=== PATIENT | male | born 1990 | race African-American/Black ===

== ENCOUNTER 2017-06-13 13:40 | Emergency (ER) | payer SELFPAY ==
[2017-06-13] MEDS ORDERED: FAMOTIDINE 20 MG TABLET PO ONE (14:59)
[2017-06-13] MEDS ORDERED: DIPHENHYDRAMINE HCL 50 MG CAPSULE PO ONE (14:59)
[2017-06-13] MEDS ORDERED: DEXAMETHASONE SOD PHOS INJ 10 MG/1 ML VIAL IM ONE (14:59)
--- NOTE | 2017-06-13 15:04 | ER Document Report ---
HPI - HPI Pain Level: 5 Notes: Patient is a 26-year-old male who presents the ED complaining of left upper molar dental pain 1 month, and a rash that started 4 days ago. Patient states that he started noticing a bad taste in his mouth over the last couple days and believes his tooth may be infected. Patient states that he has not noticed any facial swelling or swelling of the gum in that area. Patient states that he still eating and drinking without any difficulties. Patient states that he developed a rash on his face that then spread down to his extremities over the last 4 days. Patient has been taking Benadryl with minimal relief. The rash does itch, and states that his skin feels rough with little bumps. He denies any known exposure to plants, insect bites, new detergents, new clothes, or any new foods. Denies any drug allergies. Patient's medical history only significant for hypertension which he takes blood pressure pill for daily. Patient does admit to smoking but denies any illicit drug use. He does not have a PCM at this time. Denies any headache, fever, URI, ear pain, sore throat , dysphagia, chest pain, palpitations, syncope, cough, wheeze, shortness of breath, abdominal pain, nausea/vomiting/diarrhea, dysuria, urethral discharge, hematuria, urethral discharge, joint pains, muscle aches. Pt does report a recent URI without sore throat. No recent travel or sick contacts otherwise. - ROS Notes: REVIEW OF SYSTEMS: CONSTITUTIONAL : Denies fever, chills, or sweats. Denies recent illness. EENT: see hpi CARDIOVASCULAR: Denies chest pain. Denies palpitations or racing or irregular heart beat. Denies ankle edema. RESPIRATORY: Denies cough, cold, or chest congestion. Denies shortness of breath, difficulty breathing, or wheezing. GASTROINTESTINAL: Denies abdominal pain or distention. Denies nausea, vomiting , or diarrhea. Denies blood in vomitus, stools, or per rectum. Denies black, tarry stools. Denies constipation. GENITOURINARY: Denies difficulty urinating, painful urination, burning, frequency, blood in urine, or discharge. MUSCULOSKELETAL: Denies back or neck pain or stiffness. Denies joint pain or swelling. SKIN: see hpi NEUROLOGICAL: Denies confusion or altered mental status. Denies passing out or loss of consciousness. Denies dizziness or lightheadedness. Denies headache. Denies weakness or paralysis or loss of use of either side. Denies problems with gait or speech. Denies sensory loss, numbness, or tingling. Denies seizures. PSYCHIATRIC: Denies anxiety or stress. Denies depression, suicidal ideation, or homicidal ideation. ALL OTHER SYSTEMS REVIEWED AND NEGATIVE. Dictation was performed using [employer] voice recognition software - CARDIOVASCULAR Cardiovascular: DENIES: Chest pain - REPRODUCTIVE Reproductive: DENIES: : - DERM Skin Color: Normal Past Medical History - Social History Smoking Status: Current Every Day Smoker Frequency of alcohol use: None Drug Abuse: None Family History: Reviewed & Not Pertinent - Past Medical History Cardiac Medical History: Reports: Hx Hypertension Pulmonary Medical History: Reports: Hx Asthma Endocrine Medical History: Denies: Hx Diabetes Mellitus Type 2 Renal/ Medical History: Denies: Hx Peritoneal Dialysis GI Medical History: Denies: Hx Gastroesophageal Reflux Disease Musculoskeltal Medical History: Reports Hx Musculoskeletal Trauma Traumatic Medical History: Reports: Hx Fractures - Right hand Surgical Hx: Negative - Immunizations Immunizations up to date: Yes Hx Diphtheria, Pertussis, Tetanus Vaccination: Yes Vertical Provider Document - CONSTITUTIONAL Agree With Documented VS: Yes Notes: PHYSICAL EXAMINATION: GENERAL: Well-appearing, well-nourished and in no acute distress. HEAD: Atraumatic, normocephalic. EYES: Pupils equal round and reactive to light, extraocular movements intact, sclera anicteric, conjunctiva are normal. ENT: EAC clear b/l. TM's intact b/l without erythema, fluid, or perforation. Nares patent and without discharge. oropharynx clear without exudates. No tonsilar hypertrophy or erythema. Moist mucous membranes. No sinus tenderness. Uvula midline. No palatine shift. No tongue protrusion. Mouth: + fracture to tooth #15. + tenderness. No obvious abscess or discharge noted. No akanksha's. NECK: Normal range of motion, supple without lymphadenopathy. No rigidity. LUNGS: Breath sounds clear to auscultation bilaterally and equal. No wheezes rales or rhonchi. HEART: Regular rate and rhythm without murmurs, rubs, gallops. ABDOMEN: Soft, nontender, nondistended abdomen. No guarding, no rebound. No masses appreciated. Normal bowel sounds present. No CVA tenderness bilaterally. Musculoskeletal: FROM to passive/active. Strength 5+/5. Extremities: No cyanosis, clubbing, or edema b/l. Peripheral pulses 2+. Capillary refill less than 3 seconds. NEUROLOGICAL: Cranial nerves grossly intact. Normal speech, normal gait. Normal sensory, motor exams PSYCH: Normal mood, normal affect. SKIN: dry, rough skin, mildly raised macular rash to the arms, neck, face. No deep erythema, abscess, streaks, or discharge. No tenderness or induration. - INFECTION CONTROL TRAVEL OUTSIDE OF THE [place] IN LAST 30 DAYS: No - RESPIRATORY O2 Sat by Pulse Oximetry: 98 Course - Re-evaluation Re-evalutation: 06/13/17 15:06 Patient is an afebrile, well-hydrated, 26-year-old male presents the ED with a dermatitis NOS and toothache based on H&P today. ?infection vs nerve etiology for his dental pain. Low suspicion for any deep space infection (akanksha's, pharyngeal/peritonsillar abscess, abscess), respiratory compromise, meningitis, cellulitis, sepsis, or other systemic infection at this time. Decadron 10 mg given IM today. Benadryl 50 mg and Pepcid 20 mg given p.o. today. I will be sending him home with a prescription for clindamycin 300 mg p.o. 3 times daily for 10 days. Conservative measures otherwise. Advised recheck with dentist in the next week. Follow-up/establish with PCM this week. Return to ED with any worsening/concerning symptoms otherwise as reviewed in discharge. Patient is in agreement. - Vital Signs Vital signs: Temp Pulse Resp BP Pulse Ox 98.1 F 84 16 143/100 H 98 06/13/17 13:50 06/13/17 13:50 06/13/17 13:50 06/13/17 13:50 06/13/17 13:50 Discharge - Discharge Clinical Impression: Toothache, Dermatitis Condition: Stable Disposition: HOME, SELF-CARE Instructions: Clindamycin ([facility]), Topical Steroid Cream or Ointment ([facility]), Toothache ([facility]), [facility], Atopic Dermatitis (Eczema) ([facility]), [employer] Additional Instructions: [place] and floss twice daily Take meds as directed Tylenol/ibuprofen as needed Oral benadryl/pepcid as needed May use topical benadryl/cortisone cream as well as needed Consider consult with Dermatology Get an appointment with a Dentist in the next 1-2 weeks Establish/recheck with PCM this week Return to the ED with any worsening symptoms and/or development of fever, headache, trouble swallowing, neck pain/stiffness, chest pain, palpitations, syncope, shortness of breath, trouble breathing, abdominal pain, n/v/d, or other worsening symptoms that are concerning to you. Prescriptions: Clindamycin HCl [Cleocin 300 mg Capsule] 300 mg PO TID #30 capsule Forms: Elevated Blood Pressure, Smoking Cessation Education Referrals: [facility] [Provider Group] - Follow up as needed [facility] [Provider Group] - Follow up as needed
[2017-06-13 15:19] VITALS: BP 137/99
== END 2017-06-13 15:26 | disposition home or self-care (01) ==
LOC: ER 13:40
DX: K08.89 Other specified disorders of teeth and supporting structures (principal); R43.9 Unspecified disturbances of smell and taste; L30.9 Dermatitis, unspecified; L29.8 Other pruritus; I10 Essential (primary) hypertension; J45.909 Unspecified asthma, uncomplicated; F17.200 Nicotine dependence, unspecified, uncomplicated; Z79.899 Other long term (current) drug therapy
CPT/HCPCS: 99282; 96372; J1100

== ENCOUNTER 2017-10-25 15:04 | Emergency (ER) | payer SELFPAY ==
[2017-10-25 15:28] VITALS: BP 159/99
[2017-10-25] MEDS ORDERED: CEFTRIAXONE INJ 250 MG VIAL IM ONE (17:32)
[2017-10-25] MEDS ORDERED: LIDOCAINE 1% INJ-PF (10 MG/ML) 30 ML SDV INJ ONE (17:32)
[2017-10-25] MEDS ORDERED: AZITHROMYCIN 250 MG TABLET PO ONE (17:32)
--- NOTE | 2017-10-25 17:38 | ER Document Report ---
HPI - HPI Pain Level: 1 Notes: Patient is a 27-year-old male who presents ED for 2 complaints. The first complaints is urethral discharge, burning with urination after having sexual intercourse with another female about 3 days ago. Patient states that he does not have any testicular pain or penile pain. He still eating and drinking without any difficulties. Second complaint is a rash that started on his hands that spread to his arms, waistband, legs, and feet bilaterally. Patient states that he has constant itching that is worse at nighttime. He has not noticed any purulent discharge, abscess, or streaks. 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 Denies any headache, fever, neck pain, URI, sore throat, chest pain , palpitations, syncope, cough, shortness of breath, wheeze, dyspnea, abdominal pain, nausea/vomiting/diarrhea, hematuria. - ROS Notes: REVIEW OF SYSTEMS: CONSTITUTIONAL : Denies fever, chills, or sweats. Denies recent illness. EENT: Denies eye, ear, throat, or mouth pain or symptoms. Denies nasal or sinus congestion or discharge. Denies throat, tongue, or mouth swelling or difficulty swallowing. CARDIOVASCULAR: Denies chest pain. Denies palpitations or racing or irregular heart beat. Denies ankle edema. RESPIRATORY: Denies cough, cold, or chest congestion. Denies shortness of breath, difficulty breathing, or wheezing. GASTROINTESTINAL: Denies abdominal pain or distention. Denies nausea, vomiting , or diarrhea. Denies blood in vomitus, stools, or per rectum. Denies black, tarry stools. Denies constipation. GENITOURINARY: see hpi MUSCULOSKELETAL: Denies back or neck pain or stiffness. Denies joint pain or swelling. SKIN: see hpi NEUROLOGICAL: Denies confusion or altered mental status. Denies passing out or loss of consciousness. Denies dizziness or lightheadedness. Denies headache. Denies weakness or paralysis or loss of use of either side. Denies problems with gait or speech. Denies sensory loss, numbness, or tingling. ALL OTHER SYSTEMS REVIEWED AND NEGATIVE. Dictation was performed using [employer] voice recognition software - REPRODUCTIVE Reproductive: DENIES: : Past Medical History - Social History Smoking Status: Current Every Day Smoker Chew tobacco use (# tins/day): No Frequency of alcohol use: Heavy Drug Abuse: Marijuana Family History: Reviewed & Not Pertinent Patient has suicidal ideation: No Patient has homicidal ideation: No - Past Medical History Cardiac Medical History: Reports: Hx Hypertension Pulmonary Medical History: Reports: Hx Asthma Endocrine Medical History: Denies: Hx Diabetes Mellitus Type 2 Renal/ Medical History: Denies: Hx Peritoneal Dialysis GI Medical History: Denies: Hx Gastroesophageal Reflux Disease Musculoskeltal Medical History: Reports Hx Musculoskeletal Trauma Traumatic Medical History: Reports: Hx Fractures - Right hand - Immunizations Immunizations up to date: Yes Hx Diphtheria, Pertussis, Tetanus Vaccination: Yes Vertical Provider Document - CONSTITUTIONAL Agree With Documented VS: Yes Notes: PHYSICAL EXAMINATION: GENERAL: Well-appearing, well-nourished and in no acute distress. HEAD: Atraumatic, normocephalic. EYES: Pupils equal round and reactive to light, extraocular movements intact, sclera anicteric, conjunctiva are normal. ENT: EAC clear b/l. TM's intact b/l without erythema, fluid, or perforation. Nares patent and without discharge. oropharynx clear without exudates. No tonsilar hypertrophy or erythema. Moist mucous membranes. No sinus tenderness. NECK: Normal range of motion, supple without lymphadenopathy LUNGS: Breath sounds clear to auscultation bilaterally and equal. No wheezes rales or rhonchi. HEART: Regular rate and rhythm without murmurs, rubs, gallops. ABDOMEN: Soft, nontender, nondistended abdomen. No guarding, no rebound. No masses appreciated. Normal bowel sounds present. No CVA tenderness bilaterally. : No erythema, ulceration, lesions. No palp tenderness to penis or testicles. No lymphadenopathy or hernia. + yellow urethral discharge. Musculoskeletal: FROM to passive/active. Strength 5+/5. Extremities: No cyanosis, clubbing, or edema b/l. Peripheral pulses 2+. Capillary refill less than 3 seconds. NEUROLOGICAL: Cranial nerves grossly intact. Normal speech, normal gait. Normal sensory, motor exams PSYCH: Normal mood, normal affect. SKIN: small maculopapular erythemic lesions with scabbing and burrows noted to hands, arms, axilla, waistline, legs, and feet b/l. - INFECTION CONTROL TRAVEL OUTSIDE OF THE [place] IN LAST 30 DAYS: No - RESPIRATORY O2 Sat by Pulse Oximetry: 99 Course - Re-evaluation Re-evalutation: 10/25/17 17:38 Patient is an afebrile, well-hydrated, 27-year-old male who presents the ED with suspected gonorrhea as well as scabies. Vitals are stable. PE is otherwise unremarkable. Urinalysis and GC/chlamydia are pending, but based on the urinary discharge and symptoms I will go ahead and treat him and not have him wait for the results. Patient may call in 4 hours for his results. patient given Zithromax and Rocephin. Patient advised that he needs to check in with the health department this week for further testing and evaluation. Patient will also be sent home with permethrin cream. Scabies precautions reviewed. Conservative measures for symptoms otherwise. Recheck with your PCM in 3-5 days. Return to the ED with any worsening/concerning symptoms otherwise as reviewed in discharge. Patient is in agreement. - Vital Signs Vital signs: Temp Pulse Resp BP Pulse Ox 98.6 F 80 18 159/99 H 99 10/25/17 15:24 10/25/17 15:24 10/25/17 15:24 10/25/17 15:24 10/25/17 15:24 Discharge - Discharge Clinical Impression: Gonorrhea, Scabies Condition: Stable Disposition: HOME, SELF-CARE Instructions: Gonorrhea ([facility]), Antibiotic Shot ([facility]), Scabies ([facility]) Additional Instructions: Push fluids (i.e. water, cranberry juice) Proper hygenic technique Keep the skin clean Safe sexual practices with condoms everytime Tylenol/ibuprofen as needed May use over the counter AZO for burning with urination Check in with the health department this week for further testing* Your chlamydia/Ghon test are pending and you will be notified if positive results; you may call in 4 hours-1 day for the results as well Return immediately if symptoms worsen F/u with your PCM in 3-5 days for a recheck Consider consult with a Urologist for ongoing/worsening symptoms. Return to the ED with any development of OQUENDO/fever, trouble with vision, eye redness, worsening pain, urethral discharge, urinary retention, blood in the urine, flank pain, abdominal pain, n/v, Chest Pain, shortness of breath, joint pains, trouble breathing, or any other worsening/concerning symptoms as needed otherwise. Scabies precautions as reviewed Use cream as directed Wash/bag up all items Get rid of the chair Prescriptions: Permethrin [Elimite] 60 gm TP ONCE PRN #1 cream..g. PRN Reason: Forms: Elevated Blood Pressure Referrals: HEALTH DEPT,[facility] [NO LOCAL MD] - Follow up as needed [facility] [Provider Group] - Follow up as needed [facility] [Provider Group] - Follow up as needed
[2017-10-25 17:52] LABS: APPEARANCE,URINE SLIGHTLY-CLOUDY; BILIRUBIN,URINE NEGATIVE (NEGATIVE); GLUCOSE, URINE NEGATIVE (NEGATIVE); KETONES,URINE NEGATIVE (NEGATIVE); LEUKOCYTE ESTERASE,URINE LARGE (NEGATIVE); NITRITE,URINE NEGATIVE (NEGATIVE); PROTEIN,URINE NEGATIVE (NEGATIVE); URINE SPECIFIC GRAVITY 1.015
[2017-10-25 20:23] LABS: CHLAM PCR NOT DETECTED (NOT DETECT)
== END 2017-10-25 18:39 | disposition home or self-care (01) ==
LOC: ER 15:04
DX: A54.9 Gonococcal infection, unspecified (principal); B86 Scabies; R30.0 Dysuria; I10 Essential (primary) hypertension; J45.909 Unspecified asthma, uncomplicated; F17.200 Nicotine dependence, unspecified, uncomplicated
CPT/HCPCS: 99283; 96372; 81001; 87491; 87591; J3490; J0696

== ENCOUNTER 2017-11-15 04:11 | Emergency (ER) | payer SELFPAY ==
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
[2017-11-15 06:04] VITALS: BP 160/90
== END 2017-11-15 06:04 | disposition home or self-care (01) ==
LOC: ER 04:11
DX: S69.91XA Unspecified injury of right wrist, hand and finger(s), initial encounter (principal); M79.641 Pain in right hand; M25.531 Pain in right wrist; Y04.0XXA Assault by unarmed brawl or fight, initial encounter; J45.909 Unspecified asthma, uncomplicated; I10 Essential (primary) hypertension; Z87.891 Personal history of nicotine dependence; Z87.81 Personal history of (healed) traumatic fracture
CPT/HCPCS: 99283

== ENCOUNTER 2018-03-19 12:33 | Emergency (ER) | payer SELFPAY ==
[2018-03-19] MEDS ORDERED: RINGERS SOLUTION,LACTATED 1,000 ML IV ONE ×2 (13:28→15:11)
--- NOTE | 2018-03-19 13:29 | ER Document Report ---
ED General - General Chief Complaint: Irregular Pulse Stated Complaint: POSSIBLE OVERDOSE Time Seen by Provider: 03/19/18 13:26 Notes: Patient says that he sniffed cocaine about 10 AM this morning. He then began to feel pressure in his chest, tingling all over, also tightness in his legs and hands. He is concerned is having a heart attack so he called EMS to transport him here. In route to the emergency department, the patient received Versed 4 mg IV by EMS. His blood pressure by EMS was 188/103. Patient is very anxious and agitated, complaining primarily of pain in the left lumbar back region. Patient denies a history of heart troubles. Denies taking anything else except for the cocaine. Patient has a history of hypertension. Says he only smokes marijuana and takes cocaine. Drinks alcohol occasionally. TRAVEL OUTSIDE OF THE [place] IN LAST 30 DAYS: No - Related Data Allergies/Adverse Reactions: No Known Allergies Allergy (Verified 06/13/17 14:40) Past Medical History - Social History Smoking Status: Unknown if Ever Smoked Cigarette use (# per day): No Frequency of alcohol use: Occasional Drug Abuse: Cocaine, Marijuana Family History: Reviewed & Not Pertinent - Past Medical History Cardiac Medical History: Reports: Hx Hypertension Pulmonary Medical History: Reports: Hx Asthma Musculoskeltal Medical History: Reports Hx Musculoskeletal Trauma Psychiatric Medical History: Reports: Hx Schizophrenia Traumatic Medical History: Reports: Hx Fractures - Right hand - Immunizations Immunizations up to date: Yes Hx Diphtheria, Pertussis, Tetanus Vaccination: Yes Review of Systems - Review of Systems Notes: REVIEW OF SYSTEMS: CONSTITUTIONAL : Denies fever. EENT: Denies eye, ear, nose or mouth or throat pain or other symptoms. CARDIOVASCULAR: Denies chest pain, but has experienced some tightness in the front of his chest and some tingling in his arms and legs and chest. RESPIRATORY: Denies cough, chest congestion, or shortness of breath. GASTROINTESTINAL: Denies abdominal pain or nausea, vomiting, or diarrhea. GENITOURINARY: Denies difficulty or painful urinating, urinary frequency, blood in urine. MUSCULOSKELETAL: Denies back or neck pain. Denies joint pain or swelling. SKIN: Denies rash or skin lesions. NEUROLOGICAL: Denies LOC or altered mental status. Denies headache. Denies sensory loss or motor deficits. Psychiatric: Patient is very anxious and hyperactive and is difficult to get answers to my questions. He seems frightened by the prospect of dying, often asking if his IV is working, but at the same time complaining of being shocked by the leads! ALL OTHER SYSTEMS REVIEWED AND NEGATIVE. Physical Exam - Vital signs Vitals: Resp 29 H 03/19/18 12:43 Interpretation: Normal, Hypertensive - Moderate elevation of blood pressure, 188 /103 by EMS in transit. - Notes Notes: PHYSICAL EXAMINATION: GENERAL: Well-appearing, in no acute distress. Anxious, hyperactive, restless, agitated, but not hostile and belligerent. At 110 heart rate at the bedside by me. HEAD: Atraumatic, normocephalic. EYES: Pupils equal round and reactive to light, extraocular movements intact. ENT: oropharynx clear without exudates. Moist mucous membranes. NECK: Normal range of motion, supple. LUNGS: Breath sounds clear and equal bilaterally. HEART: Regular rate and rhythm without murmurs. ABDOMEN: Soft, nontender. No guarding or rebound. No masses. BACK: No tenderness throughout entire back. EXTREMITIES: Normal range of motion without pain. NEUROLOGICAL: Normal speech, normal gait. Normal sensory, motor, and reflex exams. Awake, alert, and oriented x3. Cranial nerves normal. PSYCH: Normal mood, normal affect. SKIN: Warm, dry, no rashes. Course - Re-evaluation Re-evalutation: 03/19/18 15:19 Patient says he feels as if he has an infection where the leads are attached from his campus monitor. He says they keep shocking me. Says he has pain that goes from his left lower back down his left leg. Has never had this before. He is very anxious at this time. Keeps holding the oxygen mask to his O2 sat is 100%. His heart rates about 124. Lungs are clear. Regular rhythm. Abdomen is soft and nontender. 03/19/18 16:50 Seems to be a little more calm and controlled, though anxious at times. Patient's mother and another lady around 5 and I asked him if he was acting his normal self and they both vigorously shook their heads no. They said that he has a history of schizophrenia and is not on his medications and this is how he acts when he is out of control. Patient says he is agreeable to staying in the hospital overnight for evaluation in the morning. 03/19/18 20:18 Nurse made me aware that patient is somewhat agitated and his heart rate is at 120 now. I have ordered another 2 mg of Ativan IV. - Vital Signs Vital signs: Temp Pulse Resp BP Pulse Ox 98.0 F 91 16 142/97 H 98 03/20/18 12:51 03/20/18 12:51 03/20/18 12:51 03/20/18 12:51 03/20/18 12:51 - Laboratory Result Diagrams: 03/19/18 13:42 03/19/18 13:42 Laboratory results interpreted by me: 03/19/18 03/19/18 03/19/18 13:09 13:42 13:42 Total Bilirubin 2.8 H Creatine Kinase 985 H CK-MB (CK-2) 5.16 H Urine Ketones 80 H Urine Blood SMALL H Discharge - Discharge Clinical Impression: Schizophrenia, Substance abuse, Amphetamine abuse Condition: Stable Disposition: PSYCH HOSP/UNIT
[2018-03-19 14:00] LABS: ABSOLUTE LYMPHOCYTES (AUTO) 1.1 10^3/uL (0.5-4.7); ABSOLUTE NEUT (AUTO) 6.1 10^3/uL (1.7-8.2); BASOPHILS % (AUTO) 0.3 % (0-2); HEMATOCRIT 44.8 % (37.9-51.0); HEMOGLOBIN 15.2 g/dL (13.5-17.0); LYMPHOCYTES % (AUTO) 13.6 % (13-45); MEAN CORPUSCULAR HEMOGLOBIN 29.7 pg (27.0-33.4); MEAN CORPUSCULAR HGB CONC 33.9 g/dL (32.0-36.0); MEAN CORPUSCULAR VOLUME 88 fl (80-97); MONOCYTES % (AUTO) 11.7 % (3-13); PLATELET COUNT 248 10^3/uL (150-450); RED BLOOD COUNT 5.11 10^6/uL (4.35-5.55); RED CELL DISTRIBUTION WIDTH 13.6 % (11.5-14.0); SEGMENTED NEUTROPHILS % (AUTO) 74.4 % (42-78); TOTAL CELLS COUNTED % (AUTO) 100 %; WHITE BLOOD COUNT 8.2 10^3/uL (4.0-10.5)
[2018-03-19 14:06] LABS: APPEARANCE,URINE CLEAR; BILIRUBIN,URINE NEGATIVE (NEGATIVE); COLOR,URINE YELLOW; GLUCOSE, URINE NEGATIVE (NEGATIVE); KETONES,URINE 80 mg/dL (NEGATIVE); LEUKOCYTE ESTERASE,URINE NEGATIVE (NEGATIVE); NITRITE,URINE NEGATIVE (NEGATIVE); PROTEIN,URINE NEGATIVE (NEGATIVE); URINE SPECIFIC GRAVITY 1.006; UROBILINOGEN,URINE NEGATIVE mg/dL (<2.0)
[2018-03-19 14:23] LABS: URINE BARBITURATES SCREEN NEGATIVE; URINE BENZODIAZEPINES SCREEN UNCONFIRMED POSITIVE; URINE COCAINE SCREEN NEGATIVE; URINE MARIJUANA (THC) SCREEN UNCONFIRMED POSITIVE; URINE METHADONE SCREEN NEGATIVE; URINE PHENCYCLIDINE SCREEN NEGATIVE
[2018-03-19 14:25] LABS: ALANINE AMINOTRANSFERASE 35 U/L (21-72); ALBUMIN 4.8 g/dL (3.5-5.0); ALCOHOL < 10 mg/dL (NONE DETECTED); ALKALINE PHOSPHATASE 84 U/L (38-126); ANION GAP 18 (5-19); ASPARTATE AMINO TRANSFERASE 54 U/L (17-59); BILIRUBIN,DIRECT 0.3 mg/dL (0.0-0.4); BILIRUBIN,TOTAL 2.8 mg/dL (0.2-1.3); BLOOD UREA NITROGEN 10 mg/dL (7-20); CARBON DIOXIDE 22 mmol/L (22-30); CHLORIDE 100 mmol/L (98-107); CREATINE KINASE 985 U/L (55-170); GLUCOSE 94 mg/dL (75-110); LIPASE 40.6 U/L (23-300); POTASSIUM 4.6 mmol/L (3.6-5.0); SODIUM 140.1 mmol/L (137-145)
[2018-03-19 14:44] LABS: CREATINE KINASE MB 5.16 ng/mL (<4.55)
[2018-03-19 14:46] LABS: TROPONIN I 0.037 ng/mL
[2018-03-19] MEDS ORDERED: LORAZEPAM INJ 2 MG/1 ML VIAL IV ONE ×2 (15:17→20:17)
[2018-03-19] MEDS ORDERED: DIPHENHYDRAMINE HCL 50 MG CAPSULE PO ONE (18:37)
[2018-03-19] MEDS ORDERED: HALOPERIDOL 5 MG TABLET PO ONE (18:37)
[2018-03-19] MEDS ORDERED: LORAZEPAM 1 MG TABLET PO ONE (18:38)
[2018-03-19] MEDS ORDERED: DIVALPROEX SODIUM 250 MG TAB.SR.24H PO ONE (18:39)
--- NOTE | 2018-03-20 02:27 | ER Document Report ---
Doctor's Note Notes: 03/20/18 02:26 Patient resting comfortably. Lungs are clear and his heart is regular at this time. Patient has a history of reported schizophrenia and had not been sleeping for the past few days. He was tachycardic earlier but the nurse tells me that he was agitated at the time. He is now finally asleep and in no distress. The plan will be for reassessment in the morning.
--- NOTE | 2018-03-20 07:50 | EKG REPORT ---
SEVERITY:- ABNORMAL ECG - SINUS TACHYCARDIA NONSPECIFIC T ABNORMALITIES, INFERIOR LEADS : Confirmed by: Brian Short MD 20-Mar-2018 07:49:52
--- NOTE | 2018-03-20 11:00 | ER Document Report ---
Doctor's Note Notes: 03/20/18 10:58 Rounds: Chart reviewed and patient interviewed. Patient being evaluated for substance abuse and history of schizophrenia. Patient is much calmer today and more functional and alert. Answers questions appropriately. Vital signs are all normal. Patient appears to be medically stable for transfer or discharge. Ced Bennett MD
[2018-03-20 11:03] LABS: URINE BARBITURATES SCREEN NEGATIVE; URINE BENZODIAZEPINES SCREEN UNCONFIRMED POSITIVE; URINE COCAINE SCREEN NEGATIVE; URINE MARIJUANA (THC) SCREEN UNCONFIRMED POSITIVE; URINE METHADONE SCREEN NEGATIVE; URINE PHENCYCLIDINE SCREEN NEGATIVE
[2018-03-20] MEDS ORDERED: OLANZAPINE 5 MG TABLET PO SCH (13:30)
[2018-03-20] MEDS ORDERED: BENZTROPINE MESYLATE 1 MG TABLET PO SCH (13:30)
[2018-03-20] MEDS ORDERED: OLANZAPINE 5 MG TABLET PO ONE (14:00)
[2018-03-20] MEDS ORDERED: BENZTROPINE MESYLATE 1 MG TABLET PO ONE (14:00)
--- NOTE | 2018-03-20 14:45 | PSYCHOLOGICAL NOTE ---
Psych Note - Psych Note Psych Note: Reason for consult: Erratic behavior Contact Permissions: Patient's mother Lindsay Funes [phone]; Patient's aunt Maritza Almonte [phone] Patient is a 27-year-old male. Patient reports he came in because he thought he was having a heart attack. Patient reports he has been out of snf for 9 month and 7 days. Patient reports he lives with his uncle. Patient reports while he was in snf a doctor came into the snf and told him that he has schizophrenia bipolar disorder. Patient reports he does not believe it. Patient reports that he was in snf for probation violation. Patient reports his family has history of mental illness. Patient reports he uses cocaine. Patient reports he did not feel that the medicine he was getting in snf was the right medicines he was supposed to be getting. Collateral information: Patient's mother Lindsay who is present Patient's mother reports patient was always getting in trouble growing up. Patient's mother reports she was always being called to the school. Patient reports patient has times where he is extremely "high spirited" and when he is this way he goes around stealing stuff were "being crazy". Patient's mother reports once when he was High spirited in school he tore down the sink in the bathroom. Since mother reports when patient was that way he had a lot of run- in with the law. Patient's mother reports he gets lows where he calls her a lot and she sees him every other day. Patient's mother reports when he is in his low-dose he usually stays in his bedroom and is not doing "crazy stuff". Patient's mother reports patient's grandfather has schizophrenia, brother has schizophrenia, that is on his mom's side. Patient's mother reports on the dad' s side she is not sure what their diagnosis or history is but they "act crazy". Patient's mother reports that he had these issues before he started using "street drugs". Patient's mother reports she is talked to him about going to get treatment but that he has not done it. Patient's mother reports when he got out of snf he did not take the medication. Medication recommendation made by [facility] contracted psychiatric provider Dr. Paco MD includes: 1. Begin Zyprexa 5 mg twice a day 2. Begin Cogentin 1 mg daily Diagnosis: Per patient history (by report) 295.90 (F 25.1) schizoaffective disorder bipolar type ( current episode manic) Per patient report 292.9 (F 14.99) unspecified stimulant related disorder cocaine Impression/plan: Recommendation for involuntary commitment due to patient meeting criteria CT GS 122C. Patient is experiencing symptoms congruent with acute psychosis as evidenced by responding to internal stimuli. Clinician observed patient has pressured speech, flight of ideas, and requiring redirection during assessment due to patient staring off at ferreira and responding to it. Patient reported he could not hear clinician because of him staring at the ceiling. Clinician observed patient disclosed he utilized cocaine prior to coming to the hospital but observed it was more than 24 hours ago. Clinician observed patient has a prior diagnosis of bipolar and schizophrenia and is currently on medicated. Mental health to reassess at a later time. Attending physician in agreement with plan. Consulted with Dr. Hilario regarding the management and care of patient.
[2018-03-20] MEDS: OLANZAPINE 5 MG TABLET PO SCH (17:59)
--- NOTE | 2018-03-21 09:23 | ER Document Report ---
Doctor's Note Notes: 03/21/18 10:15 As the rounding physician for our psychiatric patients, I have reviewed the chart, vitals, lab work. Patient has been examined and noted to be resting comfortably, he is with his aunt, he denies any complaints. I am awaiting mental health in put.
[2018-03-21] MEDS: OLANZAPINE 5 MG TABLET PO SCH (09:33)
[2018-03-21] MEDS ORDERED: BENZTROPINE MESYLATE 1 MG TABLET PO SCH (10:00)
--- NOTE | 2018-03-21 10:48 | ER Document Report ---
ED General - General Chief Complaint: Irregular Pulse Stated Complaint: POSSIBLE OVERDOSE Time Seen by Provider: 03/19/18 13:26 TRAVEL OUTSIDE OF THE [place] IN LAST 30 DAYS: No - Related Data Allergies/Adverse Reactions: No Known Allergies Allergy (Verified 06/13/17 14:40) Past Medical History - Social History Smoking Status: Unknown if Ever Smoked Cigarette use (# per day): No Frequency of alcohol use: Occasional Drug Abuse: Cocaine, Marijuana Family History: Reviewed & Not Pertinent Patient has suicidal ideation: No Patient has homicidal ideation: No - Past Medical History Cardiac Medical History: Reports: Hx Hypertension Pulmonary Medical History: Reports: Hx Asthma Endocrine Medical History: Denies: Hx Diabetes Mellitus Type 2 Renal/ Medical History: Denies: Hx Peritoneal Dialysis GI Medical History: Denies: Hx Gastroesophageal Reflux Disease Musculoskeltal Medical History: Reports Hx Musculoskeletal Trauma Psychiatric Medical History: Reports: Hx Schizophrenia Traumatic Medical History: Reports: Hx Fractures - Right hand - Immunizations Immunizations up to date: Yes Hx Diphtheria, Pertussis, Tetanus Vaccination: Yes Physical Exam - Vital signs Vitals: Resp 29 H 03/19/18 12:43 Course - Re-evaluation Re-evalutation: 03/21/18 10:48 Patient has been reevaluated, I agree with mental health the patient is stable for discharge family members here, this appears old been medication related After performing a Medical Screening Examination, I estimate there is LOW risk for any life threatening mental health issues. At this time the patient looks extremely well and has not attempted severe self harm. I have reevaluated this patient multiple times and no significant life threatening changes are noted. The patient and I have discussed the diagnosis and risks, and we agree with discharging home with close follow-up with the understanding that symptoms and presentations can change. We also discussed returning to the Emergency Department immediately if new or worsening symptoms occur. We have discussed the symptoms which are most concerning (hallucinations, thoughts or actions of self harm or harm to others) that necessitate immediate return. - Vital Signs Vital signs: Temp Pulse Resp BP Pulse Ox 97.9 F 89 18 122/95 H 98 03/21/18 09:42 03/21/18 09:42 03/21/18 09:42 03/21/18 09:42 03/21/18 09:42 - Laboratory Result Diagrams: 03/19/18 13:42 03/19/18 13:42 Laboratory results interpreted by me: 03/19/18 03/19/18 03/19/18 13:09 13:42 13:42 Total Bilirubin 2.8 H Creatine Kinase 985 H CK-MB (CK-2) 5.16 H Urine Ketones 80 H Urine Blood SMALL H Discharge - Discharge Clinical Impression: Substance abuse, Amphetamine abuse Schizophrenia Qualifiers: Schizophrenia type: unspecified Qualified Code(s): F20.9 - Schizophrenia, unspecified Condition: Stable Disposition: PSYCH HOSP/UNIT
--- NOTE | 2018-03-21 11:23 | PSYCHOLOGICAL NOTE ---
Psych Note - Psych Note Psych Note: Reason for consult: Erratic behavior Contact Permissions: Patient's mother Lindsay Funes [phone]; Patient's aunt Maritza Almonte [phone] Patient is a 27-year-old male. Patient reports he came in because he thought he was having a heart attack. Patient disclosed that he just finished outpatient substance abuse treatment through [facility] "I saw a lady twice a week and we did not anything...it was a waste of time." Patient continued to report that he was clean while attending [facility] because he was on probation; however, is no longer on probation. Patient states he has no interest in receiving services for substance abuse. Patient disclosed that he took a bunch of Adderall, "it's speed;" however, denies using any methamphetamine. He continued disclosed that he may have done a "Zani" and he has done "perks" in the past. Patient disclosed he has no interest in being "locked up" for substance abuse treatment and when asked if he would follow-up outpatient for substance abuse he stated "probably not." Patient's aunt is at bedside per patient's request. She discussed with patient treatment in attempt to encourage substance abuse treatment however patient still refused. Patient is alert and orientated to person, place, time and circumstance. Mood is euthymic with congruent affect. Patient denies suicidal and homicidal ideation. Delusions are absent and behaviors congruent with intact reality based presentation i.e. organized and linear thought processes. Eye contact was fair. Conversational speech was within normal rate, tone and prosody. Intellectual abilities appear to be within the average range. Attention and concentration were good. Insight, judgment, impulse control are poor due to substance abuse. Medication recommendation made by [facility] contracted psychiatric provider Dr. Paco MD includes: 1. Zyprexa 5 mg twice a day 2. 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 Patient no longer meets IVC criteria per [place] GS 120 2C. Patient is no longer demonstrating manic symptoms is calmly sitting and engaging with clinician. Patient toxicology report indicates polysubstance use to included amphetamine. Patient initial presentation correlates with amphetamine intoxication; these presenting symptoms have since resolved. Patient is encouraged to follow-up with outpatient mental health provider and receive substance abuse treatment; however, patient has refused. Patient was provided substance abuse resource list for treatment options he he changed his mind. Clinician explained to the patient and patient's aunt the patient needs to obtain and maintain sobriety to effectively assess for possible mental health diagnosis (ie being high can create symptoms of psychosis). Dr. Hilario was consulted regarding the management and care of patient; attending physician is in agreement with recommendations and disposition.
[2018-03-21 11:59] VITALS: BP 129/91
== END 2018-03-21 11:59 | disposition home or self-care (01) ==
LOC: ER 12:33
DX: F15.10 Other stimulant abuse, uncomplicated (principal); F14.10 Cocaine abuse, uncomplicated; F12.10 Cannabis abuse, uncomplicated; F20.9 Schizophrenia, unspecified; R07.89 Other chest pain; R20.2 Paresthesia of skin; M54.5 Low back pain; F41.9 Anxiety disorder, unspecified; I10 Essential (primary) hypertension; J45.909 Unspecified asthma, uncomplicated
CPT/HCPCS: 93005; 99285; 96361; 96374; 36415; 82553; 80307 ×3; 82550; 83690; 84443; 85025; 80053; 81001; 84484; 93010; G0480; J3490; J2060; J7120

== ENCOUNTER 2018-03-22 12:47 | Emergency (ER) | payer SELFPAY ==
[2018-03-22] MEDS ORDERED: ONDANSETRON 4 MG TAB.RAPDIS PO ONE (13:24)
[2018-03-22] MEDS ORDERED: NORMAL SALINE 1000 ML 1,000 ML IV ONE (13:24)
--- NOTE | 2018-03-22 13:28 | ER Document Report ---
ED Medical Screen (RME) - General Chief Complaint: Abdominal Pain Stated Complaint: ABDOMINAL PAIN Time Seen by Provider: 03/22/18 13:21 Notes: RAPID MEDICAL EVALUATION DISCLOSURE I have seen this patient as part of a Rapid Medical Evaluation and, if applicable, placed any initially appropriate orders. The patient will be seen and fully evaluated, including a full history and physical exam, by a provider ( in Main ED or Fast Track) when a room becomes available. 27-year-old male here with complaints of abdominal pain that started in the lower quadrants and now is diffuse. The symptoms started yesterday and are accompanied with nausea and vomiting but no diarrhea. He reports that he has had "vomited about 20 times today". He is not taking anything for the symptoms. He cannot tell me if there is anything that makes the abdominal pain worse or better. He denies any prior intra-abdominal surgeries. Of note, patient was recently discharged from the ED for a prior visit in which he used cocaine then immediately started having chest pain. EXAM Mildly tachycardic 110s Diffuse abdominal tenderness TRAVEL OUTSIDE OF THE [place] IN LAST 30 DAYS: No - Related Data Allergies/Adverse Reactions: No Known Allergies Allergy (Verified 03/22/18 12:52) Past Medical History - Social History Chew tobacco use (# tins/day): No Frequency of alcohol use: Heavy Drug Abuse: Cocaine, Marijuana - Past Medical History Cardiac Medical History: Reports: Hx Hypertension Pulmonary Medical History: Reports: Hx Asthma Endocrine Medical History: Denies: Hx Diabetes Mellitus Type 2 Renal/ Medical History: Denies: Hx Peritoneal Dialysis GI Medical History: Denies: Hx Gastroesophageal Reflux Disease Musculoskeltal Medical History: Reports Hx Musculoskeletal Trauma Psychiatric Medical History: Reports: Hx Schizophrenia Traumatic Medical History: Reports: Hx Fractures - Right hand - Immunizations Immunizations up to date: Yes Hx Diphtheria, Pertussis, Tetanus Vaccination: Yes Physical Exam - Vital signs Vitals: Temp Pulse Resp BP Pulse Ox 98.3 F 138 H 21 H 145/109 H 98 03/22/18 12:48 03/22/18 12:48 03/22/18 12:48 03/22/18 12:48 03/22/18 12:48 Course - Vital Signs Vital signs: Temp Pulse Resp BP Pulse Ox 98.3 F 138 H 21 H 145/109 H 98 03/22/18 12:48 03/22/18 12:48 03/22/18 12:48 03/22/18 12:48 03/22/18 12:48
[2018-03-22 13:51] LABS: ABSOLUTE EOSINOPHILS # (AUTO) 0.1 10^3/uL (0.0-0.6); ABSOLUTE LYMPHOCYTES (AUTO) 2.6 10^3/uL (0.5-4.7); ABSOLUTE MONOCYTES (AUTO) 0.8 10^3/uL (0.1-1.4); ABSOLUTE NEUT (AUTO) 2.5 10^3/uL (1.7-8.2); BASOPHILS % (AUTO) 0.4 % (0-2); EOSINOPHILS % (AUTO) 1.1 % (0-6); HEMATOCRIT 47.2 % (37.9-51.0); LYMPHOCYTES % (AUTO) 43.4 % (13-45); MEAN CORPUSCULAR HEMOGLOBIN 29.8 pg (27.0-33.4); MEAN CORPUSCULAR VOLUME 88 fl (80-97); MONOCYTES % (AUTO) 13.1 % (3-13); PLATELET COUNT 268 10^3/uL (150-450); RED BLOOD COUNT 5.38 10^6/uL (4.35-5.55); RED CELL DISTRIBUTION WIDTH 13.6 % (11.5-14.0); TOTAL CELLS COUNTED % (AUTO) 100 %
[2018-03-22 13:59] LABS: ALANINE AMINOTRANSFERASE 40 U/L (21-72); ALBUMIN 5.1 g/dL (3.5-5.0); ALKALINE PHOSPHATASE 72 U/L (38-126); ANION GAP 16 (5-19); ASPARTATE AMINO TRANSFERASE 43 U/L (17-59); BILIRUBIN,DIRECT 0.3 mg/dL (0.0-0.4); BILIRUBIN,TOTAL 1.9 mg/dL (0.2-1.3); BLOOD UREA NITROGEN 10 mg/dL (7-20); CALCIUM 10.5 mg/dL (8.4-10.2); CARBON DIOXIDE 27 mmol/L (22-30); CHLORIDE 100 mmol/L (98-107); GLUCOSE 104 mg/dL (75-110); LIPASE 62.2 U/L (23-300); POTASSIUM 4.2 mmol/L (3.6-5.0); SODIUM 142.9 mmol/L (137-145); TOTAL PROTEIN 8.7 g/dL (6.3-8.2)
--- NOTE | 2018-03-22 14:08 | ER Document Report ---
ED General - General Chief Complaint: Abdominal Pain Stated Complaint: ABDOMINAL PAIN Time Seen by Provider: 03/22/18 13:21 Mode of Arrival: Ambulatory Information source: Patient Notes: 27-year-old male who is chronically on methamphetamines cocaine and other substances presents with complaints of abdominal pain. Patient notes his pain started yesterday,, he was just discharged yesterday for overdose. Patient notes his pain is in the bilateral lower quadrants. He denies any fevers or chills denies any nausea vomiting or diarrhea TRAVEL OUTSIDE OF THE [place] IN LAST 30 DAYS: No - HPI Onset: Yesterday Onset/Duration: Persistent, Worse Quality of pain: Sharp Severity: Moderate Pain Level: 3 Associated symptoms: Other Exacerbated by: Denies Relieved by: Denies Similar symptoms previously: Yes Recently seen / treated by doctor: Yes - Related Data Allergies/Adverse Reactions: No Known Allergies Allergy (Verified 03/22/18 12:52) Past Medical History - Social History Smoking Status: Former Smoker Cigarette use (# per day): No Chew tobacco use (# tins/day): No Smoking Education Provided: No Frequency of alcohol use: Heavy Drug Abuse: Cocaine, Marijuana Family History: Reviewed & Not Pertinent Patient has suicidal ideation: No Patient has homicidal ideation: No - Past Medical History Cardiac Medical History: Reports: Hx Hypertension Pulmonary Medical History: Reports: Hx Asthma Endocrine Medical History: Denies: Hx Diabetes Mellitus Type 2 Renal/ Medical History: Denies: Hx Peritoneal Dialysis GI Medical History: Denies: Hx Gastroesophageal Reflux Disease Musculoskeltal Medical History: Reports Hx Musculoskeletal Trauma Psychiatric Medical History: Reports: Hx Schizophrenia Traumatic Medical History: Reports: Hx Fractures - Right hand - Immunizations Immunizations up to date: Yes Hx Diphtheria, Pertussis, Tetanus Vaccination: Yes Review of Systems - Review of Systems Notes: REVIEW OF SYSTEMS: CONSTITUTIONAL : Denies fever, chills, or sweats. Denies recent illness. EENT: Denies eye, ear, throat, or mouth pain or symptoms. Denies nasal or sinus congestion or discharge. Denies throat, tongue, or mouth swelling or difficulty swallowing. CARDIOVASCULAR: Denies chest pain. Denies palpitations or racing or irregular heart beat. Denies ankle edema. RESPIRATORY: Denies cough, cold, or chest congestion. Denies shortness of breath, difficulty breathing, or wheezing. GASTROINTESTINAL: Admits to abdominal pain. GENITOURINARY: Denies difficulty urinating, painful urination, burning, frequency, blood in urine, or discharge. MUSCULOSKELETAL: Denies back or neck pain or stiffness. Denies joint pain or swelling. SKIN: Denies rash, lesions or sores. HEMATOLOGIC : Denies easy bruising or bleeding. LYMPHATIC: Denies swollen, enlarged glands. NEUROLOGICAL: Denies confusion or altered mental status. Denies passing out or loss of consciousness. Denies dizziness or lightheadedness. Denies headache. Denies weakness or paralysis or loss of use of either side. Denies problems with gait or speech. Denies sensory loss, numbness, or tingling. Denies seizures. PSYCHIATRIC: Denies anxiety or stress. Denies depression, suicidal ideation, or homicidal ideation. ALL OTHER SYSTEMS REVIEWED AND NEGATIVE. Dictation was performed using [employer] voice recognition software PHYSICAL EXAMINATION: GENERAL: Patient cannot sit still continues to move around in bed HEAD: Atraumatic, normocephalic. EYES: Pupils equal round and reactive to light, extraocular movements intact, sclera anicteric, conjunctiva are normal. ENT: Nares patent, oropharynx clear without exudates. Moist mucous membranes. NECK: Normal range of motion, supple without lymphadenopathy LUNGS: Breath sounds clear to auscultation bilaterally and equal. No wheezes rales or rhonchi. HEART: Tachycardic ABDOMEN: Soft, nontender, nondistended abdomen. No guarding, no rebound. No masses appreciated. Musculoskeletal: Normal range of motion, no pitting or edema. No cyanosis. NEUROLOGICAL: Cranial nerves grossly intact. Normal speech, normal gait. Normal sensory, motor exams PSYCH: Agitated SKIN: Warm, Dry, normal turgor, no rashes or lesions noted. Physical Exam - Vital signs Vitals: Temp Pulse Resp BP Pulse Ox 98.3 F 138 H 21 H 145/109 H 98 03/22/18 12:48 03/22/18 12:48 03/22/18 12:48 03/22/18 12:48 03/22/18 12:48 Course - Re-evaluation Re-evalutation: 03/22/18 15:12 I have very low suspicion for any life-threatening issues, I believe the patient is withdrawing from his usual substances, nonetheless significant workup was performed including blood work which noted no elevation of white count, and then a CT abdomen pelvis with IV contrast which noted again no acute abnormalities. Given that the patient has no obvious sign of infectious process is afebrile, I will treat him with medications to help with his agitation 03/22/18 16:03 Patient after Haldol is calm and collected, he denies any pain at this time heart rate is now normal, he is stable for discharge After performing a Medical Screening Examination, I estimate there is LOW risk for ACUTE APPENDICITIS, BOWEL OBSTRUCTION, ACUTE CHOLECYSTITIS, PERFORATED DIVERTICULITIS, INCARCERATED HERNIA, PANCREATITIS, TESTICULAR TORSION or PERFORATED ULCER, thus I consider the discharge disposition reasonable. Also, there is no evidence or peritonitis, sepsis, or toxicity. I have reevaluated this patient multiple times and no significant life threatening changes are noted. The patient and I have discussed the diagnosis and risks, and we agree with discharging home with close follow-up with the understanding that symptoms and presentations can change. We also discussed returning to the Emergency Department immediately if new or worsening symptoms occur. We have discussed the symptoms which are most concerning (e.g., bloody stool, fever, changing or worsening pain, intractable vomiting - standard verbal up date) that necessitate immediate return. - Vital Signs Vital signs: Temp Pulse Resp BP Pulse Ox 98.3 F 138 H 33 H 136/98 H 97 03/22/18 12:48 03/22/18 12:48 03/22/18 15:00 03/22/18 13:52 03/22/18 15:00 - Laboratory Result Diagrams: 03/22/18 13:32 03/22/18 13:32 Laboratory results interpreted by me: 03/22/18 03/22/18 03/22/18 13:32 13:32 15:15 Monocytes % 13.1 H Calcium 10.5 H Total Bilirubin 1.9 H Total Protein 8.7 H Albumin 5.1 H Urine Ketones TRACE H Urine Urobilinogen 2.0 H - Diagnostic Test Radiology reviewed: Image reviewed - CT abdomen notes no significant abnormality , Reports reviewed Discharge - Discharge Clinical Impression: Substance abuse Abdominal pain Qualifiers: Abdominal location: generalized Qualified Code(s): R10.84 - Generalized abdominal pain Condition: Stable Disposition: HOME, SELF-CARE Instructions: Abdominal Pain ([facility]) Additional Instructions: Return immediately if there are any other concerns
--- NOTE | 2018-03-22 14:33 | RADIOLOGY REPORT (SQ) ---
EXAM DESCRIPTION: CT ABD/PELVIS WITH IV ONLY COMPLETED DATE/TIME: 03/22/2018 2:20 pm REASON FOR STUDY: diffuse abd pain; eval further COMPARISON: 01/09/2013. TECHNIQUE: CT scan of the abdomen and pelvis performed using helical scanning technique with dynamic intravenous contrast injection. No oral contrast. Images reviewed with lung, soft tissue, and bone windows. Reconstructed coronal and sagittal MPR images reviewed. Delayed images for evaluation of the urinary system also acquired. All images stored on PACS. All CT scanners at this facility use dose modulation, iterative reconstruction, and/or weight based d osing when appropriate to reduce radiation dose to as low as reasonably achievable (ALARA). [facility]: Dose Right [facility]: CareDose [facility]: Dose Right [facility]: Teradose 4D [facility]: MyGeekDay CONTRAST TYPE AND DOSE: contrast/concentration: Isovue 370.00 mg/ml; Total Contrast Delivered: 84.0 ml; Total Saline Delivered: 69.0 ml RENAL FUNCTION: BUN 10 creatinine 1.01. RADIATION DOSE: CT Rad equipment meets quality standard of care and radiation dose reduction techniq ues were employed. CTDIvol: 5.5 - 6.8 mGy. DLP: 597 mGy-cm.. LIMITATIONS: None. FINDINGS: LOWER CHEST: No significant findings. No nodules or infiltrates. LIVER: Normal size. No masses. No dilated ducts. SPLEEN: Normal size. No focal lesions. PANCREAS: No masses. No significant calcifications. No adjacent inflammation or peripancreatic fluid collections. Pancreatic duct not dilated. GALLBLADDER: No identified stones by CT criteria. No inflammatory changes to suggest cholecystitis. ADRENAL GLANDS: No significant masses or asymmetry. RIGHT KIDNEY AND URETER: No solid masses. No significant calcifications. No hydronephrosis or hyd roureter. LEFT KIDNEY AND URETER: No solid masses. No significant calcifications. No hydronephrosis or hydr oureter. AORTA AND VESSELS: No aneurysm. No dissection. Renal arteries, SMA, celiac without stenosis. RETROPERITONEUM: No retroperitoneal adenopathy, hemorrhage or masses. BOWEL AND PERITONEAL CAVITY: No masses or inflammatory changes. No free fluid or peritoneal masses. APPENDIX: Normal. PELVIS: No mass. No free fluid. Normal bladder. ABDOMINAL WALL: No masses. No hernias. BONES: No significant or acute findings. OTHER: No other significant finding. IMPRESSION: NO SIGNIFICANT OR ACUTE FINDING IN THE ABDOMEN OR PELVIS ON CT SCAN WITH IV CONTRAST. TECHNICAL DOCUMENTATION: JOB ID: [id number] Quality ID # [id number]: Final reports with documentation of one or more dose reduction techniques (e.g., Au tomated exposure control, adjustment of the mA and/or kV according to patient size, use of iterative reconstruction technique) 2010 [employer]- All Rights Reserved Reading location - IP/workstation name: [email or web address] [id number]
[2018-03-22] MEDS ORDERED: DIPHENHYDRAMINE HCL 50 MG/ML VIAL IV ONE (14:49)
[2018-03-22] MEDS ORDERED: HALOPERIDOL LACTATE INJ 5 MG/1 ML VIAL IV ONE (14:49)
[2018-03-22 15:28] LABS: APPEARANCE,URINE CLEAR; BILIRUBIN,URINE NEGATIVE (NEGATIVE); COLOR,URINE YELLOW; GLUCOSE, URINE NEGATIVE (NEGATIVE); KETONES,URINE TRACE mg/dL (NEGATIVE); LEUKOCYTE ESTERASE,URINE NEGATIVE (NEGATIVE); NITRITE,URINE NEGATIVE (NEGATIVE); PROTEIN,URINE NEGATIVE (NEGATIVE)
[2018-03-22 16:33] VITALS: BP 121/84
== END 2018-03-22 16:33 | disposition home or self-care (01) ==
LOC: ER 12:47
DX: F19.10 Other psychoactive substance abuse, uncomplicated (principal); R10.84 Generalized abdominal pain; R10.31 Right lower quadrant pain; R10.32 Left lower quadrant pain; Z87.891 Personal history of nicotine dependence; I10 Essential (primary) hypertension; J45.909 Unspecified asthma, uncomplicated
CPT/HCPCS: 99284; 96361; 96374; 96375; 36415; 83690; 85025; 80053; 81001; 74177; J1200; S0119; J1630; J7030

== ENCOUNTER 2018-05-24 01:23 | Emergency (ER) | payer OTHER ==
[2018-05-24] MEDS ORDERED: DICYCLOMINE HCL INJ 20 MG/2 ML AMPULE IM ONE (02:40)
[2018-05-24] MEDS ORDERED: KETOROLAC TROMETHAMINE 60 MG/2 ML SDV IM ONE (02:40)
[2018-05-24] MEDS ORDERED: PROCHLORPERAZINE EDISYLATE INJ 10 MG/2 ML VIAL IM ONE (02:40)
--- NOTE | 2018-05-24 02:44 | ER Document Report ---
ED General - General Mode of Arrival: Ambulatory Information source: Patient TRAVEL OUTSIDE OF THE [place] IN LAST 30 DAYS: No - HPI Patient complains to provider of: Dictated Severity: Moderate <ISIDRO LOPEZ - Last Filed: 05/24/18 04:42> <NAIDA GRAHAM - Last Filed: 05/24/18 06:00> - General Chief Complaint: Chest Pain Stated Complaint: ABDOMINAL PAIN Time Seen by Provider: 05/24/18 02:21 Notes: Chief complaint: Abdominal pain History of complain:( obtained from----patient) 27 years old male with a history of amphetamine/and cannabis abuse, smoking cannabis within 24 hours, presents today with nausea and abdominal cramps. No fever chills or other constitutional symptoms. Constipated Onset: As above sudden Duration: Prior to arrival Severity: Moderate Quality: Crampy Context: Abuse of cannabis Exacerbating factor and relieving factors: None REVIEW OF SYSTEMS: CONSTITUTIONAL : Denies fever, chills, or sweats. Denies recent illness. EENT: Denies eye, ear, throat, or mouth pain or symptoms. Denies nasal or sinus congestion or discharge. Denies throat, tongue, or mouth swelling or difficulty swallowing. CARDIOVASCULAR: Denies chest pain. Denies palpitations or racing or irregular heart beat. Denies ankle edema. RESPIRATORY: Denies cough, cold, or chest congestion. Denies shortness of breath, difficulty breathing, or wheezing. GASTROINTESTINAL: Denies distention. Denies nausea, vomiting, or diarrhea. Denies blood in vomitus, stools, or per rectum. Denies black, tarry stools. Denies constipation. GENITOURINARY: Denies difficulty urinating, painful urination, burning, frequency, blood in urine, or discharge. FEMALE GENITOURINARY: Denies vaginal bleeding, heavy or abnormal periods, irregular periods. Denies vaginal discharge or odor. MUSCULOSKELETAL: Denies back or neck pain or stiffness. Denies joint pain or swelling. SKIN: Denies rash, lesions or sores. HEMATOLOGIC : Denies easy bruising or bleeding. LYMPHATIC: Denies swollen, enlarged glands. NEUROLOGICAL: Denies confusion or altered mental status. Denies passing out or loss of consciousness. Denies dizziness or lightheadedness. Denies headache. Denies weakness or paralysis or loss of use of either side. Denies problems with gait or speech. Denies sensory loss, numbness, or tingling. Denies seizures. PSYCHIATRIC: Denies anxiety or stress. Denies depression, suicidal ideation, or homicidal ideation. ALL OTHER SYSTEMS REVIEWED AND NEGATIVE. PHYSICAL EXAMINATION: GENERAL: Well-appearing, well-nourished and in mild acute distress. HEAD: Atraumatic, normocephalic. EYES: Pupils equal round and reactive to light, extraocular movements intact, conjunctiva are normal. ENT: Nares patent, oropharynx clear without exudates. Moist mucous membranes. NECK: Normal range of motion, supple without lymphadenopathy LUNGS: Breath sounds clear to auscultation bilaterally and equal. No wheezes rales or rhonchi. HEART: Regular rate and rhythm without murmurs ABDOMEN: Soft, nontender, nondistended abdomen. No guarding, no rebound. No masses appreciated. Examination of genitals-deferred Musculoskeletal: Normal range of motion, no pitting or edema. No cyanosis. NEUROLOGICAL: Cranial nerves grossly intact. Normal speech, normal gait. Normal sensory, motor exams PSYCH: Normal mood, normal affect. SKIN: Warm, Dry, normal turgor, no rashes or lesions noted. Dictation was performed using [email or web address] voice recognition software (ISIDRO LOPEZ) - Related Data Allergies/Adverse Reactions: No Known Allergies Allergy (Verified 05/24/18 03:26) Past Medical History - General Information source: Patient - Social History Smoking Status: Never Smoker Chew tobacco use (# tins/day): No Frequency of alcohol use: Social Drug Abuse: Marijuana Family History: Reviewed & Not Pertinent Patient has suicidal ideation: No Patient has homicidal ideation: No - Past Medical History Cardiac Medical History: Reports: Hx Hypertension Pulmonary Medical History: Reports: Hx Asthma Endocrine Medical History: Denies: Hx Diabetes Mellitus Type 2 Renal/ Medical History: Denies: Hx Peritoneal Dialysis GI Medical History: Denies: Hx Gastroesophageal Reflux Disease Musculoskeltal Medical History: Reports Hx Musculoskeletal Trauma Psychiatric Medical History: Reports: Hx Schizophrenia Traumatic Medical History: Reports: Hx Fractures - Right hand - Immunizations Immunizations up to date: Yes Hx Diphtheria, Pertussis, Tetanus Vaccination: Yes <ISIDRO LOPEZ - Last Filed: 05/24/18 04:42> Review of Systems <ISIDRO LOPEZ - Last Filed: 05/24/18 04:42> <NAIDA GRAHAM - Last Filed: 05/24/18 06:00> - Review of Systems Notes: Dictated (ISIDRO LOPEZ) Physical Exam <ISIDRO LOPEZ - Last Filed: 05/24/18 04:42> <NAIDA GRAHAM - Last Filed: 05/24/18 06:00> - Vital signs Vitals: Resp 35 H 05/24/18 02:38 - Notes Notes: Dictated (ISIDRO LOPEZ) Course - Laboratory Result Diagrams: 05/24/18 02:54 05/24/18 02:54 <ISIDRO LOPEZ - Last Filed: 05/24/18 04:42> - Laboratory Result Diagrams: 05/24/18 02:54 05/24/18 02:54 <NAIDA GRAHAM - Last Filed: 05/24/18 06:00> - Re-evaluation Re-evalutation: 05/24/18 05:57 CT scan does not show any evidence of concerning findings. Patient is resting currently. I did wake up the patient he says he feels much improved. We will discharge home with nausea medicine. I informed him to return to the ER if he has recurrent worsening abdominal pain, any fevers, recurrent vomiting. Patient agrees with plan will be discharged home. Dictation of this chart was performed using voice recognition software; therefore, there may be some unintended grammatical errors. (NAIDA GRAHAM) - Vital Signs Vital signs: Temp Pulse Resp BP Pulse Ox 15 137/90 H 100 05/24/18 04:41 05/24/18 04:41 05/24/18 04:41 - Laboratory Laboratory results interpreted by me: 05/24/18 05/24/18 02:54 02:54 RBC 6.24 H Hgb 18.5 H Hct 54.5 H Potassium 3.3 L Chloride 95 L Anion Gap 24 H Creatinine 1.51 H Est GFR (Non-Af Amer) 55 L Glucose 135 H Calcium 11.6 H Total Bilirubin 2.5 H Direct Bilirubin 0.7 H Creatine Kinase 802 H Total Protein 9.9 H Albumin 5.7 H Discharge <ISIDRO LOPEZ - Last Filed: 05/24/18 04:42> <NAIDA GRAHAM - Last Filed: 05/24/18 06:00> - Discharge Clinical Impression: Abdominal pain Qualifiers: Abdominal location: generalized Qualified Code(s): R10.84 - Generalized abdominal pain Condition: Good Disposition: HOME, SELF-CARE Additional Instructions: Please take the Zofran as prescribed for any nausea. Please return to the ER immediately if you develop fevers, recurrent abdominal pain, or vomiting. Follow up with a doctor in 2 days if you continue to have any symptoms. Prescriptions: Ondansetron [Zofran Odt 4 mg Tablet] 1 tab PO Q4H PRN #15 tab.rapdis PRN Reason: For Nausea/Vomiting
[2018-05-24 03:05] LABS: ABSOLUTE BASOPHILS # (AUTO) 0.1 10^3/uL (0.0-0.2); ABSOLUTE LYMPHOCYTES (AUTO) 2.8 10^3/uL (0.5-4.7); ABSOLUTE NEUT (AUTO) 3.7 10^3/uL (1.7-8.2); BASOPHILS % (AUTO) 0.8 % (0-2); EOSINOPHILS % (AUTO) 0.4 % (0-6); HEMATOCRIT 54.5 % (37.9-51.0); HEMOGLOBIN 18.5 g/dL (13.5-17.0); LYMPHOCYTES % (AUTO) 37.2 % (13-45); MEAN CORPUSCULAR HEMOGLOBIN 29.7 pg (27.0-33.4); MEAN CORPUSCULAR HGB CONC 33.9 g/dL (32.0-36.0); MEAN CORPUSCULAR VOLUME 87 fl (80-97); PLATELET COUNT 306 10^3/uL (150-450); RED BLOOD COUNT 6.24 10^6/uL (4.35-5.55); RED CELL DISTRIBUTION WIDTH 13.9 % (11.5-14.0); SEGMENTED NEUTROPHILS % (AUTO) 48.6 % (42-78); TOTAL CELLS COUNTED % (AUTO) 100 %; WHITE BLOOD COUNT 7.6 10^3/uL (4.0-10.5)
[2018-05-24] MEDS ORDERED: KETOROLAC TROMETHAMINE INJ/PF 30 MG/1 ML SDV IV ONE (03:25)
[2018-05-24] MEDS ORDERED: PROCHLORPERAZINE EDISYLATE INJ 10 MG/2 ML VIAL IV ONE (03:25)
--- NOTE | 2018-05-24 03:28 | RADIOLOGY REPORT (SQ) ---
EXAM DESCRIPTION: XR ABDOMEN 1 VIEW (KUB) COMPLETED DATE/TME: 05/24/2018 02:41 CLINICAL HISTORY: Abdominal pain COMPARISON: 03/22/2018 FINDINGS: Bowel: No dilated loops of large or small bowel. Peritoneum: No free intraperitoneal air identified. Solid organs: No definite organomegaly. Calcifications: No abnormal calcifications. Bones: No acute osseous abnormalities. Other: Visualized lung bases are clear. IMPRESSION: Nonobstructive bowel gas pattern.
[2018-05-24] MEDS ORDERED: NORMAL SALINE 1000 ML 1,000 ML IV ONE (03:44)
[2018-05-24] MEDS ORDERED: NORMAL SALINE 1000 ML 1,000 ML IV PRN (03:44)
[2018-05-24 04:04] LABS: ALANINE AMINOTRANSFERASE 30 U/L (21-72); ALBUMIN 5.7 g/dL (3.5-5.0); ALKALINE PHOSPHATASE 102 U/L (38-126); ASPARTATE AMINO TRANSFERASE 51 U/L (17-59); BILIRUBIN,DIRECT 0.7 mg/dL (0.0-0.4); BILIRUBIN,TOTAL 2.5 mg/dL (0.2-1.3); BLOOD UREA NITROGEN 14 mg/dL (7-20); CALCIUM 11.6 mg/dL (8.4-10.2); CARBON DIOXIDE 23 mmol/L (22-30); CREATINE KINASE 802 U/L (55-170); GLUCOSE 135 mg/dL (75-110); POTASSIUM 3.3 mmol/L (3.6-5.0); TOTAL PROTEIN 9.9 g/dL (6.3-8.2)
[2018-05-24 04:09] LABS: CHLORIDE 95 mmol/L (98-107); SODIUM 142.1 mmol/L (137-145)
[2018-05-24 04:10] LABS: ANION GAP 24 (5-19)
[2018-05-24] MEDS ORDERED: POTASSIUM CHLORIDE 20 MEQ/15 ML UDCUP PO ONE (04:51)
--- NOTE | 2018-05-24 05:11 | RADIOLOGY REPORT (SQ) ---
EXAM DESCRIPTION: CT ABDOMEN PELVIS WITHOUT IV CONTRAST COMPLETED DATE/TME: 05/24/2018 04:36 CLINICAL HISTORY: Diffuse abdominal pain COMPARISON: 03/22/2018 TECHNIQUE: CT of the abdomen and pelvis without IV contrast. Evaluation of the solid organs and vasculature is suboptimal due to lack of IV contrast. DLP: 340.75 mGy-cm FINDINGS: Lung Bases: The visualized lung bases are clear. Bones: No destructive bone lesions identified. Abdomen: Liver: The liver has normal size and density. Gallbladder: No calcified gallstones. Spleen, Pancreas, and Adrenal Glands: The spleen, pancreas, and adrenal glands are unremarkable. Kidneys: The kidneys have normal size and contour without evidence of hydronephrosis. No obstructing ureteral calculi. Vasculature: The aorta and IVC have normal caliber and position. Stomach: The stomach and duodenum have normal course. Other: No free intraperitoneal air. No free fluid or lymphadenopathy. Pelvis: Bladder: Urinary bladder is unremarkable. Bowel: No dilated loops of large or small bowel. Appendix: Normal appendix. Pelvis: Prostate is not enlarged. IMPRESSION: 1. No acute inflammatory or obstructive process identified. This exam was performed according to our departmental dose-optimization program, which includes automated exposure control, adjustment of the mA and/or kV according to patient size and/or use of iterative reconstruction technique.
[2018-05-24 06:01] VITALS: BP 143/95
--- NOTE | 2018-05-24 07:43 | EKG REPORT ---
SEVERITY:- ABNORMAL ECG - NONSPECIFIC T ABNORMALITIES, INFERIOR LEADS PROLONGED QT INTERVAL SINUS RHYTHM : Confirmed by: Kelin Nixon MD 24-May-2018 07:43:19
--- NOTE | 2018-05-24 07:44 | EKG REPORT ---
SEVERITY:- ABNORMAL ECG - SINUS TACHYCARDIA PROBABLE LEFT ATRIAL ABNORMALITY NONSPECIFIC T ABNORMALITIES, INFERIOR LEADS BORDERLINE PROLONGED QT INTERVAL : Confirmed by: Kelin Nixon MD 24-May-2018 07:43:32
== END 2018-05-24 06:10 | disposition home or self-care (01) ==
LOC: ER 01:23
DX: K59.00 Constipation, unspecified (principal); R10.84 Generalized abdominal pain; R11.0 Nausea; F12.10 Cannabis abuse, uncomplicated; I10 Essential (primary) hypertension; J45.909 Unspecified asthma, uncomplicated
CPT/HCPCS: 93005; 99285; 96372; 96361; 96374; 96375; 36415; 82553; 82550; 85025; 80053; 84484; 74018; 74176; 93010; J0500; J1885; J0780; J7030

== ENCOUNTER 2018-07-17 02:11 | Emergency (ER) | payer OTHER ==
[2018-07-17 02:47] LABS: ABSOLUTE LYMPHOCYTES (AUTO) 1.8 10^3/uL (0.5-4.7); ABSOLUTE MONOCYTES (AUTO) 1.7 10^3/uL (0.1-1.4); ABSOLUTE NEUT (AUTO) 7.3 10^3/uL (1.7-8.2); BASOPHILS % (AUTO) 0.2 % (0-2); HEMATOCRIT 54.7 % (37.9-51.0); HEMOGLOBIN 18.7 g/dL (13.5-17.0); LYMPHOCYTES % (AUTO) 16.7 % (13-45); MEAN CORPUSCULAR HEMOGLOBIN 30.4 pg (27.0-33.4); MEAN CORPUSCULAR HGB CONC 34.1 g/dL (32.0-36.0); MEAN CORPUSCULAR VOLUME 89 fl (80-97); MONOCYTES % (AUTO) 15.5 % (3-13); PLATELET COUNT 318 10^3/uL (150-450); RED BLOOD COUNT 6.13 10^6/uL (4.35-5.55); RED CELL DISTRIBUTION WIDTH 14.8 % (11.5-14.0); SEGMENTED NEUTROPHILS % (AUTO) 67.6 % (42-78); TOTAL CELLS COUNTED % (AUTO) 100 %; WHITE BLOOD COUNT 10.8 10^3/uL (4.0-10.5)
[2018-07-17 03:22] LABS: APPEARANCE,URINE CLOUDY; BILIRUBIN,URINE NEGATIVE (NEGATIVE); COLOR,URINE YELLOW; GLUCOSE, URINE NEGATIVE (NEGATIVE); KETONES,URINE TRACE mg/dL (NEGATIVE); LEUKOCYTE ESTERASE,URINE NEGATIVE (NEGATIVE); NITRITE,URINE NEGATIVE (NEGATIVE); PROTEIN,URINE 100 mg/dL (NEGATIVE); URINE SPECIFIC GRAVITY 1.008; UROBILINOGEN,URINE NEGATIVE mg/dL (<2.0)
[2018-07-17 03:49] LABS: ALANINE AMINOTRANSFERASE 29 U/L (21-72); ALBUMIN 5.3 g/dL (3.5-5.0); ALKALINE PHOSPHATASE 91 U/L (38-126); ASPARTATE AMINO TRANSFERASE 69 U/L (17-59); BILIRUBIN,DIRECT 0.7 mg/dL (0.0-0.4); BLOOD UREA NITROGEN 31 mg/dL (7-20); CALCIUM 10.2 mg/dL (8.4-10.2); CARBON DIOXIDE 22 mmol/L (22-30); CHLORIDE 101 mmol/L (98-107); CREATINE KINASE 1447 U/L (55-170); GLUCOSE 88 mg/dL (75-110); POTASSIUM 4.4 mmol/L (3.6-5.0); TOTAL PROTEIN 9.7 g/dL (6.3-8.2)
[2018-07-17 03:52] LABS: ANION GAP 21 (5-19)
[2018-07-17] MEDS ORDERED: KETOROLAC TROMETHAMINE INJ/PF 30 MG/1 ML SDV IV ONE (04:11)
[2018-07-17] MEDS ORDERED: ONDANSETRON HCL INJ/PF 4 MG/2 ML SDV IV ONE (04:11)
--- NOTE | 2018-07-17 04:46 | RADIOLOGY REPORT (SQ) ---
EXAM DESCRIPTION: CT ABDOMEN WITHOUT IV CONTRAST COMPLETED DATE/TME: 07/17/2018 04:10 CLINICAL HISTORY: right flank pain COMPARISON: 05/24/2018 TECHNIQUE: CT of the abdomen and pelvis without IV contrast. Evaluation of the solid organs and vasculature is suboptimal due to lack of IV contrast. DLP: 301.14 mGy-cm FINDINGS: Lung Bases: The visualized lung bases are clear. Bones: No destructive bone lesions identified. Minimal endplate spondylosis. Abdomen: Liver: The liver has normal size and density. Gallbladder: No calcified gallstones. Spleen, Pancreas, and Adrenal Glands: The spleen, pancreas, and adrenal glands are unremarkable. Kidneys: The kidneys have normal size and contour without evidence of hydronephrosis. No obstructing ureteral calculi. Vasculature: The aorta and IVC have normal caliber and position. Stomach: The stomach and duodenum have normal course. Other: No free intraperitoneal air. No free fluid or lymphadenopathy. Pelvis: Bladder: Urinary bladder is unremarkable. Bowel: No dilated loops of large or small bowel. Appendix: Normal appendix. Pelvis: Prostate is not enlarged. IMPRESSION: 1. No acute inflammatory or obstructive process identified. This exam was performed according to our departmental dose-optimization program, which includes automated exposure control, adjustment of the mA and/or kV according to patient size and/or use of iterative reconstruction technique.
[2018-07-17] MEDS ORDERED: NORMAL SALINE 1000 ML 2,000 ML IV ONE (04:53)
--- NOTE | 2018-07-17 05:02 | ER Document Report ---
ED General - General Chief Complaint: Flank Pain Stated Complaint: FLANK PAIN Time Seen by Provider: 07/17/18 02:34 Mode of Arrival: Ambulatory Information source: Patient Notes: Patient is an otherwise healthy 27-year-old male who presents with chief complaint of sudden onset right flank pain. Patient reports this started approximately 1 hour prior to arrival. Patient also reports that he thinks there is blood in his urine as he reports it has been very dark lately patient also reports he has been working outside the last several days and has no air- conditioning in his home, patient thinks he may be dehydrated. Denies any history of renal stones. Patient reports past medical history of hypertension although he does not take any medications for that, denies any surgical history. Patient reports drinking 3-4 24 ounce beers per day. TRAVEL OUTSIDE OF THE [place] IN LAST 30 DAYS: No - Related Data Allergies/Adverse Reactions: No Known Allergies Allergy (Verified 05/24/18 03:26) Past Medical History - Social History Smoking Status: Current Every Day Smoker Family History: Reviewed & Not Pertinent Patient has suicidal ideation: No Patient has homicidal ideation: No - Past Medical History Cardiac Medical History: Reports: Hx Hypertension Pulmonary Medical History: Reports: Hx Asthma Endocrine Medical History: Denies: Hx Diabetes Mellitus Type 2 Renal/ Medical History: Denies: Hx Peritoneal Dialysis GI Medical History: Denies: Hx Gastroesophageal Reflux Disease Musculoskeletal Medical History: Reports Hx Musculoskeletal Trauma Psychiatric Medical History: Reports: Hx Schizophrenia Traumatic Medical History: Reports: Hx Fractures - Right hand - Immunizations Immunizations up to date: Yes Hx Diphtheria, Pertussis, Tetanus Vaccination: Yes Physical Exam - Vital signs Vitals: Temp Pulse Resp BP Pulse Ox 97.8 F 111 H 20 168/117 H 100 07/17/18 02:13 07/17/18 02:13 07/17/18 02:13 07/17/18 02:13 07/17/18 02:13 Course - Re-evaluation Re-evalutation: Otherwise healthy 27-year-old male presenting with chief complaint of right flank pain with acute onset 1 hour prior to arrival. Patient does not appear to be in any acute distress. Reports pain has resolved prior to arrival. Patient does have right-sided CVA tenderness. Mildly elevated white blood count of 10.8 with no shift. BUN and creatinine are both elevated, BUN is 31, creatinine 3.66, patient denies any history of kidney dysfunction. CK is 1447. Mild elevations noted in the direct bilirubin 0.7, total bilirubin is 3.0. Will send patient for CT renal stone study as patient also has hematuria with no signs of infection. Likely patient's elevation in his BUN and creatinine as well as elevated CK are due to dehydration. Patient is already received 1 L normal saline from EMS, will rehydrate patient with additional 2 L fluid bolus and will redraw chemistries after IV fluids infused. CT renal stone study shows no evidence of any renal calculi. IV fluids remain infusing, patient does report that he is feeling better. Vital signs remained stable. Repeat metabolic panel, Significantly improved from previous, BUN 29, creatinine 2.49, CK 1263. Extensive discussion had with patient regarding maintaining hydration status while out in the sun working all day. Additionally patient encouraged to please be compliant with his hypertension treatment. As his blood pressure was elevated today. Patient verbalizes understanding and is stable for discharge. - Vital Signs Vital signs: Temp Pulse Resp BP Pulse Ox 98.5 F 95 16 177/99 H 100 07/17/18 07:05 07/17/18 07:05 07/17/18 07:05 07/17/18 07:05 07/17/18 07:05 - Laboratory Result Diagrams: 07/17/18 01:50 07/17/18 06:28 Laboratory results interpreted by me: 07/17/18 07/17/18 07/17/18 01:50 03:00 03:12 WBC 10.8 H RBC 6.13 H Hgb 18.7 H Hct 54.7 H RDW 14.8 H Monocytes % 15.5 H Absolute Monocytes 1.7 H Carbon Dioxide Anion Gap 21 H BUN 31 H Creatinine 3.66 H Est GFR ( Amer) 24 L Est GFR (Non-Af Amer) 20 L Total Bilirubin 3.0 H Direct Bilirubin 0.7 H AST 69 H Creatine Kinase 1447 H Total Protein 9.7 H Albumin 5.3 H Urine Protein 100 H Urine Ketones TRACE H Urine Blood LARGE H 07/17/18 06:28 WBC RBC Hgb Hct RDW Monocytes % Absolute Monocytes Carbon Dioxide 20 L Anion Gap BUN 29 H Creatinine 2.49 H Est GFR ( Amer) 37 L Est GFR (Non-Af Amer) 31 L Total Bilirubin 2.4 H Direct Bilirubin AST Creatine Kinase 1263 H Total Protein Albumin Urine Protein Urine Ketones Urine Blood Discharge - Discharge Clinical Impression: Dehydration Hypertension Qualifiers: Hypertension type: unspecified Qualified Code(s): I10 - Essential (primary) hypertension Condition: Stable Disposition: HOME, SELF-CARE Additional Instructions: Heat Exhaustion You have had an episode of heat exhaustion. The body overheats when sweating fails to keep the temperature down due to high humidity, exercise, or dehydration. Typical symptoms may include muscle cramps, dizziness, nausea, and even chilling. You should rest and drink plenty of fluids. Do not resume any activities until you feel fully back to normal. To prevent a recurrence, avoid working in the heat. Always drink plenty of fluids when the weather is hot, particularly if you will be exercising. Use extra caution when the humidity is high. If you feel symptoms of heat illness, douse yourself with cold water and rest in the shade. Call the doctor if you develop confusion, repeated vomiting, severe headache, severe muscle spasms, fever, chest pain or shortness of breath. Dehydration Dehydration can result from vomiting or diarrhea, fever, or decreased intake of fluids. If severe, hospitalization and intravenous fluids may be required. Most cases are treated at home with fluids by mouth. For the next 24 hours, drink lots of clear fluids. In mild cases, this can be soda pop or sports drinks. For more severe dehydration, the doctor may recommend special fluids such as Pedialyte or Lytren. Try to get three liters ( 3 quarts) of fluid per day. If vomiting occurs, continue to drink the fluids frequently (every 15 to 20 minutes), but in small amounts (one or two ounces). Depending on the type of dehydration, the doctor may prescribe antinausea medicine or potassium replacements. Call the doctor or return for re-examination if you become progressively weak, vomit repeatedly, or have other new symptoms. High Blood Pressure When your blood pressure was taken today it was elevated. Pre-hypertension/Hypertension: The patient has been informed that they may have pre-hypertension or Hypertension based on a blood pressure reading in the emergency department. I recommend that the patient call the primary care provider listed on their discharge instructions or a physician of their choice this wee to arrange follow up for further evaluation of possible pre- hypertension or Hypertension. Sometimes, stress or illness causes a temporary elevation of your blood pressure. We suggest that you get your blood pressure measured three more times during the next few days to see if this is more than a temporary abnormality. If your blood pressure is greater than 150/90 on each occasion, you must have treatment. Some simple things you can do to help are: If you have blood pressure medicine but aren't using it regularly, start taking it again. Get some aerobic exercise for at least 20 minutes on a daily basis. (See your doctor before beginning a new exercise program.) Eat a low-fat diet. Lose excess weight. Avoid salty foods and avoid adding salt to any of the foods you eat. Avoid diet pills, decongestants, "energizing" herbs, and other medicines that elevate blood pressure. If left untreated, hypertension greatly enhances your risk for developing heart disease and strokes. Please don't ignore this problem. Please follow-up with your primary care provider, call this week for an appointment as they may need to adjust your dose of blood pressure medication. Please take your blood pressure medication as prescribed. Please be sure to drink plenty of fluids if you have to be out in the heat. Try to avoid being in the heat as much as possible. Forms: Return to Work
[2018-07-17 06:58] LABS: ALANINE AMINOTRANSFERASE 37 U/L (21-72); ALBUMIN 3.9 g/dL (3.5-5.0); ALKALINE PHOSPHATASE 64 U/L (38-126); ANION GAP 14 (5-19); ASPARTATE AMINO TRANSFERASE 48 U/L (17-59); BILIRUBIN,DIRECT 0.3 mg/dL (0.0-0.4); BILIRUBIN,TOTAL 2.4 mg/dL (0.2-1.3); BLOOD UREA NITROGEN 29 mg/dL (7-20); CALCIUM 8.5 mg/dL (8.4-10.2); CARBON DIOXIDE 20 mmol/L (22-30); CHLORIDE 106 mmol/L (98-107); CREATINE KINASE 1263 U/L (55-170); GLUCOSE 89 mg/dL (75-110); TOTAL PROTEIN 6.9 g/dL (6.3-8.2)
[2018-07-17 07:06] VITALS: BP 177/99
== END 2018-07-17 07:09 | disposition home or self-care (01) ==
LOC: ER 02:11
DX: E86.0 Dehydration (principal); I10 Essential (primary) hypertension; R10.9 Unspecified abdominal pain; F17.200 Nicotine dependence, unspecified, uncomplicated; J45.909 Unspecified asthma, uncomplicated
CPT/HCPCS: 99284; 96361; 96374; 96375; 36415; 82550; 85025; 80053; 81001; 76380; J1885; J2405; J7030

== ENCOUNTER 2018-12-19 00:21 | Emergency (ER) | payer OTHER ==
[2018-12-19 00:37] VITALS: BP 171/123
[2018-12-19 02:21] LABS: ABSOLUTE LYMPHOCYTES (AUTO) 1.2 10^3/uL (0.5-4.7); ABSOLUTE MONOCYTES (AUTO) 0.5 10^3/uL (0.1-1.4); ABSOLUTE NEUT (AUTO) 3.1 10^3/uL (1.7-8.2); BASOPHILS % (AUTO) 0.5 % (0-2); EOSINOPHILS % (AUTO) 0.7 % (0-6); HEMATOCRIT 39.6 % (37.9-51.0); HEMOGLOBIN 13.4 g/dL (13.5-17.0); LYMPHOCYTES % (AUTO) 24.2 % (13-45); MEAN CORPUSCULAR HEMOGLOBIN 29.9 pg (27.0-33.4); MEAN CORPUSCULAR HGB CONC 33.8 g/dL (32.0-36.0); MEAN CORPUSCULAR VOLUME 88 fl (80-97); MONOCYTES % (AUTO) 9.7 % (3-13); PLATELET COUNT 216 10^3/uL (150-450); RED BLOOD COUNT 4.49 10^6/uL (4.35-5.55); RED CELL DISTRIBUTION WIDTH 13.2 % (11.5-14.0); SEGMENTED NEUTROPHILS % (AUTO) 64.9 % (42-78); TOTAL CELLS COUNTED % (AUTO) 100 %; WHITE BLOOD COUNT 4.8 10^3/uL (4.0-10.5)
[2018-12-19 02:28] LABS: APPEARANCE,URINE CLEAR; BILIRUBIN,URINE NEGATIVE (NEGATIVE); COLOR,URINE YELLOW; GLUCOSE, URINE NEGATIVE (NEGATIVE); KETONES,URINE NEGATIVE (NEGATIVE); LEUKOCYTE ESTERASE,URINE NEGATIVE (NEGATIVE); NITRITE,URINE NEGATIVE (NEGATIVE); PROTEIN,URINE NEGATIVE (NEGATIVE); URINE SPECIFIC GRAVITY 1.016
[2018-12-19 02:32] LABS: ALANINE AMINOTRANSFERASE 39 U/L (21-72); ALBUMIN 4.3 g/dL (3.5-5.0); ALKALINE PHOSPHATASE 72 U/L (38-126); ANION GAP 8 (5-19); ASPARTATE AMINO TRANSFERASE 39 U/L (17-59); BILIRUBIN,DIRECT 0.2 mg/dL (0.0-0.4); BILIRUBIN,TOTAL 0.4 mg/dL (0.2-1.3); BLOOD UREA NITROGEN 13 mg/dL (7-20); CALCIUM 9.2 mg/dL (8.4-10.2); CARBON DIOXIDE 28 mmol/L (22-30); CHLORIDE 107 mmol/L (98-107); GLUCOSE 101 mg/dL (75-110); POTASSIUM 4.1 mmol/L (3.6-5.0); SODIUM 142.8 mmol/L (137-145); TOTAL PROTEIN 6.7 g/dL (6.3-8.2)
--- NOTE | 2018-12-19 07:27 | EKG REPORT ---
SEVERITY:- NORMAL ECG - SINUS RHYTHM ST ELEV, PROBABLE NORMAL EARLY REPOL PATTERN : Confirmed by: Kelin Nixon MD 19-Dec-2018 07:27:06
== END 2018-12-19 02:45 | disposition left against medical advice (07) ==
LOC: ER 00:21
DX: Z53.21 Procedure and treatment not carried out due to patient leaving prior to being seen by health care provider (principal)
CPT/HCPCS: 36415; 80053; 81001; 83690; 85025; 93005; 93010

== ENCOUNTER 2019-03-08 09:44 | Emergency (ER) | payer SELFPAY ==
[2019-03-08] MEDS ORDERED: CEFTRIAXONE INJ 250 MG VIAL IM ONE (09:57)
[2019-03-08] MEDS ORDERED: AZITHROMYCIN 250 MG TABLET PO ONE (09:57)
[2019-03-08] MEDS ORDERED: LIDOCAINE 1% INJ-PF (10 MG/ML) 30 ML SDV INJ ONE (09:57)
--- NOTE | 2019-03-08 09:58 | ER Document Report ---
HPI - HPI Pain Level: 2 Notes: Patient is a 28-year-old male with a history of hypertension, currently out of his HCTZ, who presents the emergency department complaining of possible exposure to STD by his significant other. Patient states that they are no longer together and does not know what she had. He is otherwise eating and drinking without difficulty. He is urinating normally and having normal bowel movements. He has no dysuria which is otherwise stated in the [facility] note. Denies any headache, fever, URI, sore throat, chest pain, palpitations, syncope, cough, shortness of breath, wheeze, dyspnea, abdominal pain, nausea/vomiting/diarrhea, urinary retention, dysuria, hematuria, or rash. - ROS Systems Reviewed and Negative: Yes All other systems reviewed and negative - REPRODUCTIVE Reproductive: DENIES: : Past Medical History - Social History Smoking Status: Current Every Day Smoker Family History: CAD - Past Medical History Cardiac Medical History: Reports: Hx Hypertension Pulmonary Medical History: Reports: Hx Asthma Endocrine Medical History: Denies: Hx Diabetes Mellitus Type 2 Renal/ Medical History: Denies: Hx Peritoneal Dialysis GI Medical History: Denies: Hx Gastroesophageal Reflux Disease Musculoskeletal Medical History: Reports Hx Musculoskeletal Trauma Psychiatric Medical History: Reports: Hx Schizophrenia Traumatic Medical History: Reports: Hx Fractures - Right hand - Immunizations Immunizations up to date: Yes Hx Diphtheria, Pertussis, Tetanus Vaccination: Yes Vertical Provider Document - CONSTITUTIONAL Agree With Documented VS: No - HR 90 during exam Notes: PHYSICAL EXAMINATION: GENERAL: Well-appearing, well-nourished and in no acute distress. LUNGS: Breath sounds clear to auscultation bilaterally and equal. No wheezes rales or rhonchi. HEART: Regular rate and rhythm without murmurs, rubs, gallops. ABDOMEN: Soft, nontender, nondistended abdomen. No guarding, no rebound. No masses appreciated. Normal bowel sounds present. No CVA tenderness bilaterally. : + circum. No urethral discharge, erythema, swelling, ulcerations, or lesions. Non-tender to palp testicles/penis. No lymphadenopathy or obvious hernia. Musculoskeletal: FROM to passive/active. Strength 5+/5. Extremities: No cyanosis, clubbing, or edema b/l. Peripheral pulses 2+. Capillary refill less than 3 seconds. NEUROLOGICAL: Normal speech, normal gait. PSYCH: Normal mood, normal affect. SKIN: Warm, Dry, normal turgor, no rashes or lesions noted. - INFECTION CONTROL TRAVEL OUTSIDE OF THE [place] IN LAST 30 DAYS: No Course - Re-evaluation Re-evalutation: 03/08/19 Patient is an afebrile, well-hydrated, 28-year-old male who presents to the emergency department for possible exposure to STD. Vitals are acceptable without significant tachycardia, tachypnea, or hypoxia. Gonorrhea and chlamydia tests are pending. Patient was given Zithromax and Rocephin. Urinalysis unremarkable. He is nontoxic-appearing and is tolerating p.o. without difficulty. No further labs or imaging warranted at this time. Low suspicion for any sepsis, meningitis, necrotizing fasciitis, acute abdomen. Patient to monitor symptoms and seek medical attention with acute changes. Recheck with your PCM/health department in 3-5 days for further testing. Return to the ED with any other worsening/concerning symptoms as reviewed. Patient is in agreement. - Vital Signs Vital signs: Temp Pulse Resp BP Pulse Ox 98.3 F 117 H 14 146/102 H 98 03/08/19 09:51 03/08/19 09:51 03/08/19 09:51 03/08/19 09:51 03/08/19 09:51 Discharge - Discharge Clinical Impression: Possible exposure to STD Condition: Stable Disposition: HOME, SELF-CARE Additional Instructions: Maintain fluid intake Proper hygienic technique Keep the skin clean Safe sexual practices with condoms everytime Tylenol/ibuprofen as needed Check in with the health department this week for further testing if warranted Your chlamydia/Ghon test are pending and you will be notified if positive results; you may call in 1 day for the results as well F/u with your PCM in 3-5 days for a recheck Return to the ED with any development of OQUENDO/fever, trouble with vision, eye redness, worsening pain, urethral discharge, urinary retention, blood in the urine, flank pain, abdominal pain, n/v, Chest Pain, shortness of breath, joint pains, trouble breathing, or any other worsening/concerning symptoms as needed otherwise. Prescriptions: Hydrochlorothiazide [Hydrodiuril 25 mg Tablet] 25 mg PO DAILY #30 tablet Forms: Elevated Blood Pressure, Smoking Cessation Education [facility] - Follow up in 3-5 days
[2019-03-08 10:32] LABS: APPEARANCE,URINE SLIGHTLY-CLOUDY; BILIRUBIN,URINE NEGATIVE (NEGATIVE); COLOR,URINE YELLOW; GLUCOSE, URINE NEGATIVE (NEGATIVE); KETONES,URINE NEGATIVE (NEGATIVE); LEUKOCYTE ESTERASE,URINE NEGATIVE (NEGATIVE); NITRITE,URINE NEGATIVE (NEGATIVE); PROTEIN,URINE NEGATIVE (NEGATIVE); URINE SPECIFIC GRAVITY 1.024; UROBILINOGEN,URINE NEGATIVE mg/dL (<2.0)
[2019-03-08 11:13] VITALS: BP 134/88
[2019-03-08 12:04] LABS: CHLAM PCR NOT DETECTED (NOT DETECT); GON PCR DETECTED (NOT DETECT)
== END 2019-03-08 11:21 | disposition home or self-care (01) ==
LOC: ER 09:44
DX: Z20.2 Contact with and (suspected) exposure to infections with a predominantly sexual mode of transmission (principal); F17.200 Nicotine dependence, unspecified, uncomplicated; I10 Essential (primary) hypertension
CPT/HCPCS: 99283; 96372; 87086; 81001; 87491; 87591; J3490; J0696

== ENCOUNTER 2019-03-11 10:50 | Emergency (ER) | payer SELFPAY ==
[2019-03-11 11:58] LABS: ABSOLUTE LYMPHOCYTES (AUTO) 1.6 10^3/uL (0.5-4.7); ABSOLUTE MONOCYTES (AUTO) 0.6 10^3/uL (0.1-1.4); ABSOLUTE NEUT (AUTO) 2.3 10^3/uL (1.7-8.2); BASOPHILS % (AUTO) 0.7 % (0-2); EOSINOPHILS % (AUTO) 0.2 % (0-6); HEMATOCRIT 43.7 % (37.9-51.0); HEMOGLOBIN 14.9 g/dL (13.5-17.0); LYMPHOCYTES % (AUTO) 35.9 % (13-45); MEAN CORPUSCULAR HEMOGLOBIN 29.4 pg (27.0-33.4); MEAN CORPUSCULAR HGB CONC 34.2 g/dL (32.0-36.0); MEAN CORPUSCULAR VOLUME 86 fl (80-97); MONOCYTES % (AUTO) 12.4 % (3-13); PLATELET COUNT 245 10^3/uL (150-450); RED BLOOD COUNT 5.08 10^6/uL (4.35-5.55); RED CELL DISTRIBUTION WIDTH 14.4 % (11.5-14.0); SEGMENTED NEUTROPHILS % (AUTO) 50.8 % (42-78); TOTAL CELLS COUNTED % (AUTO) 100 %; WHITE BLOOD COUNT 4.6 10^3/uL (4.0-10.5)
--- NOTE | 2019-03-11 12:19 | PSYCHOLOGICAL NOTE ---
Psych Note - Psych Note Date seen by psych provider: 03/11/19 Time seen by psych provider: 11:67 - 2605 Psych Note: Reason for Consult: substance abuse [facility]. He was found outside a dialysis center asking for help. Patient states he has been taking acid and smoking marijuana since Monday. Patient is observed laying in stretcher with a towel over his head. He was requested the patient take the towel off and his head to enable clinician to hear him better. Patient pushed to the towel to above his mouth however the rest of his head is still covered. When patient is asked about his substance abuse he reports "I do not have a drug of choice.... I do not do drugs." When is reminded to the patient that there is a long documented history in addition to the patient himself reporting to this clinician and department his substance abuse he states "I wanted to help me." When asked about his mental health history he states "I took an antidepressant in care home but I was not depressed." He confirms he is not taking medication since he has been out. He denies any thoughts of wanting to harm himself or others and when asked about possible auditory visual hallucinations he denies. Patient reports he does have a safe home to live in. Patient declines assistance in sobriety stating "sober...na,I am all right... I do not need help." Patient is reminded that if he changes his mind, resources and assistance can be provided. Patient is alert and orientated to person, place, time and circumstance. Patient is very polite to clinician says. Mood is currently euthymic with congruent affect as evidenced by the patient engaging with clinician, no psychomotor agitation. Patient denies suicidal and homicidal ideation. Delusions are absent and behaviors congruent with intact reality based presentation i.e. organized and linear thought processes. Patient keeps is head covered by a towel during evaluation; when asked to remove it, he pushed it up so only his mouth shows. Conversational speech was within normal rate, tone and prosody. Intellectual abilities appear to be within the average range. Attention and concentration were fair. Insight, judgment, impulse control are historically poor due to substance abuse. 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 Patient has a long documented history of polysubstance abuse and has a diagnosis of schizoaffective; bipolar type from when he was in care home. Patient is encouraged to follow-up with outpatient mental health provider and receive substance abuse treatment; however, patient has declined. Patient was provided substance abuse resource list for treatment options he he changed his mind. The patient is rec ommended to receive a new evaluation for his mental health diagnosis if he obtains and maintains soberity as his substance abuse can effect diagnoses (ie schizoaffective; bipolar type verses bipolar disorder). Dr. Hilario was consulted regarding the management and care of patient; attending physician is in agreement with recommendations and disposition.
[2019-03-11 12:24] LABS: ALANINE AMINOTRANSFERASE 29 U/L (21-72); ALBUMIN 4.5 g/dL (3.5-5.0); ALKALINE PHOSPHATASE 81 U/L (38-126); ANION GAP 9 (5-19); ASPARTATE AMINO TRANSFERASE 34 U/L (17-59); BILIRUBIN,DIRECT 0.2 mg/dL (0.0-0.4); BILIRUBIN,TOTAL 2.2 mg/dL (0.2-1.3); BLOOD UREA NITROGEN 15 mg/dL (7-20); CALCIUM 10.2 mg/dL (8.4-10.2); CARBON DIOXIDE 28 mmol/L (22-30); CHLORIDE 102 mmol/L (98-107); CREATINE KINASE 534 U/L (55-170); GLUCOSE 89 mg/dL (75-110); POTASSIUM 4.4 mmol/L (3.6-5.0); SODIUM 138.5 mmol/L (137-145); TOTAL PROTEIN 7.9 g/dL (6.3-8.2)
[2019-03-11 12:27] LABS: ACETAMINOPHEN < 10 ug/mL (10-30); ALCOHOL < 10 mg/dL (NONE DETECTED); SALICYLATE < 1.0 mg/dL (2.0-20.0)
[2019-03-11 12:52] VITALS: BP 114/72
--- NOTE | 2019-03-11 18:07 | ER Document Report ---
Entered by EDITH SPICER SCRIBE 03/11/19 1126 Acting as scribe for:ROCK SOLIS MD ED General <[facility] - Last Filed: 03/11/19 12:20> - General Mode of Arrival: Ambulatory Information source: Patient TRAVEL OUTSIDE OF THE [place] IN LAST 30 DAYS: No <ROCK SOLIS - Last Filed: 03/11/19 14:54> - General Chief Complaint: Possible Overdose Stated Complaint: POSSIBLE OVERDOSE Time Seen by Provider: 03/11/19 11:02 Primary Care Provider: [facility] [Outside] - Follow up as needed Notes: Patient is a 28 year old male with schizophrenia and a history of cocaine, methamphetamine abuse presents to the emergency department via EMS due to drug abuse. Patient states he took some form of acid 2-3 hours ago. He reports walking into [place] seeking help because he believed he was having a stroke or a heart attack. He states he has taken acid before but he is currently having a different experience than prior uses. Patient states he is "not psychotic," or schizophrenic and denies being prescribed mental health medications. According to EMS, staff at [facility] called [employer] whom, when arrived on the scene, found the patient to be "wigging out" and proceeded to call EMS. (EDITH SPICER) Patient is a 28 year old male with schizophrenia and a history of cocaine, methamphetamine abuse presents to the emergency department via EMS due to drug abuse. Patient states he took some form of acid 2-3 hours ago. He reports walking into [place] seeking help because he believed he was having a stroke or a heart attack. He states he has taken acid before but he is currently having a different experience than prior uses. Patient states he is "not psychotic," or schizophrenic and denies being prescribed mental health medications. According to EMS, staff at [facility] called [employer] whom, when arrived on the scene, found the patient to be "wigging out" and proceeded to call EMS. (ROCK SOLIS) - Related Data Allergies/Adverse Reactions: No Known Allergies Allergy (Verified 03/08/19 09:45) Past Medical History - General Information source: Patient - Social History Smoking Status: Current Every Day Smoker Cigarette use (# per day): Yes - Less than a pack per day Chew tobacco use (# tins/day): No Smoking Education Provided: No Frequency of alcohol use: Heavy - Reports consuming alcohol most days Drug Abuse: Cocaine, Marijuana, Methamphetamine, Other - Acid Family History: CAD - Past Medical History Cardiac Medical History: Reports: Hx Hypertension Pulmonary Medical History: Reports: Hx Asthma Musculoskeletal Medical History: Reports Hx Musculoskeletal Trauma Psychiatric Medical History: Reports: Hx Schizophrenia Traumatic Medical History: Reports: Hx Fractures - Right hand - Immunizations Immunizations up to date: Yes Hx Diphtheria, Pertussis, Tetanus Vaccination: Yes <ROCK SOLIS - Last Filed: 03/11/19 14:54> Review of Systems - Review of Systems Constitutional: See HPI EENT: No symptoms reported Cardiovascular: No symptoms reported Respiratory: No symptoms reported Gastrointestinal: No symptoms reported Genitourinary: No symptoms reported Male Genitourinary: No symptoms reported Musculoskeletal: No symptoms reported Skin: No symptoms reported Hematologic/Lymphatic: No symptoms reported Neurological/Psychological: See HPI -: Yes All other systems reviewed and negative <ROCK SOLIS - Last Filed: 03/11/19 14:54> Physical Exam <ROCK SOLIS - Last Filed: 03/11/19 14:54> - Vital signs Vitals: Temp Pulse Resp BP Pulse Ox 98.2 F 91 21 H 164/126 H 99 03/11/19 10:50 03/11/19 10:50 03/11/19 10:50 03/11/19 10:50 03/11/19 10:50 - Notes Notes: GENERAL: Alert, has towel covering his face, speaks at a low volume. No acute distress. HEAD: Normocephalic, atraumatic. EYES: Pupils equal, round, and reactive to light. Extraocular movements intact. ENT: Oral mucosa moist, tongue midline. NECK: Full range of motion. Supple. Trachea midline. LUNGS: Clear to auscultation bilaterally, no wheezes, rales, or rhonchi. No respiratory distress. HEART: Regular rate and rhythm. No murmurs, gallops, or rubs. ABDOMEN: Soft, non-tender. Non-distended. Bowel sounds present in all 4 quadrants. No guarding, rigidity, or rebound. EXTREMITIES: Moves all 4 extremities spontaneously. No edema. No cyanosis. NEUROLOGICAL: Alert and oriented x3. Normal speech. PSYCH: Has a towel covering his face, speaks at a low volume. SKIN: Warm, dry, normal turgor. No rashes or lesions noted. (EDITH SPICER) GENERAL: Alert, has towel covering his face, speaks at a low volume. No acute distress. HEAD: Normocephalic, atraumatic. EYES: Pupils equal, round, and reactive to light. Extraocular movements intact. ENT: Oral mucosa moist, tongue midline. NECK: Full range of motion. Supple. Trachea midline. LUNGS: Clear to auscultation bilaterally, no wheezes, rales, or rhonchi. No respiratory distress. HEART: Regular rate and rhythm. No murmurs, gallops, or rubs. ABDOMEN: Soft, non-tender. Non-distended. Bowel sounds present in all 4 quadrants. No guarding, rigidity, or rebound. EXTREMITIES: Moves all 4 extremities spontaneously. No edema. No cyanosis. NEUROLOGICAL: Alert and oriented x3. Normal speech. PSYCH: Has a towel covering his face, speaks at a low volume. SKIN: Warm, dry, normal turgor. No rashes or lesions noted. (ROCK SOLIS) Course - Laboratory Result Diagrams: 03/11/19 11:45 03/11/19 11:45 <VICTORINO PARISH - Last Filed: 03/11/19 12:20> - Laboratory Result Diagrams: 03/11/19 11:45 03/11/19 11:45 - EKG Interpretation by Sc EKG shows normal: Sinus rhythm, Siler, Intervals, QRS Complexes. abnormal: ST-T Waves - ST elevation, probably normal early repolarization pattern Rate: Tachycardia - 100 When compared to previous EKG there are: No significant change <ROCK SOLIS - Last Filed: 03/11/19 14:54> - Re-evaluation Re-evalutation: 03/11/19 14:53 Patient has been sleeping soundly now for a while. He will be discharged home with recommendations that he stopped using drugs and follow-up with the resource list he was given by [facility] earlier. (ROCK SOLIS) - Vital Signs Vital signs: Temp Pulse Resp BP Pulse Ox 98.2 F 91 18 114/72 96 03/11/19 10:50 03/11/19 10:50 03/11/19 12:30 03/11/19 12:30 03/11/19 12:30 - Laboratory Laboratory results interpreted by me: 03/11/19 03/11/19 11:45 11:45 RDW 14.4 H Total Bilirubin 2.2 H Creatine Kinase 534 H Salicylates < 1.0 L Acetaminophen < 10 L Discharge <[facility] - Last Filed: 03/11/19 12:20> <ROCK SOLIS - Last Filed: 03/11/19 14:54> - Discharge Clinical Impression: Polysubstance abuse Psychosis Qualifiers: Psychosis type: unspecified psychosis type Qualified Code(s): F29 - Unspecified psychosis not due to a substance or known physiological condition Condition: Stable Disposition: HOME, SELF-CARE Additional Instructions: You have been evaluated both medical and behavioral health teams and been deemed appropriate for discharge. You are highly encouraged to follow-up with both mental health and substance abuse treatment. You have been provided these resources if you change your mind. These resources include mobile crisis conta ct information. AT ANY TIME, IF YOUR SYMPTOMS CHANGE SIGNIFICANTLY OR WORSEN OR YOU DEVELOP NEW SYMPTOMS, RETURN TO THE EMERGENCY DEPARTMENT IMMEDIATELY FOR RE-EVALUATION. Referrals: [facility] [Outside] - Follow up as needed Scribe Attestation: 03/11/19 11:40 I personally performed the services described in the documentation, reviewed and edited the documentation which was dictated to the scribe in my presence, and it accurately records my words and actions. (ROCK SOLIS) I personally performed the services described in the documentation, reviewed and edited the documentation which was dictated to the scribe in my presence, and it accurately records my words and actions.
--- NOTE | 2019-03-11 20:02 | EKG REPORT ---
SEVERITY:- OTHERWISE NORMAL ECG - SINUS TACHYCARDIA ST ELEV, PROBABLE NORMAL EARLY REPOL PATTERN : Confirmed by: Kelin Nixon MD 11-Mar-2019 20:01:55
== END 2019-03-11 16:00 | disposition home or self-care (01) ==
LOC: ER 10:50
DX: F29 Unspecified psychosis not due to a substance or known physiological condition (principal); F19.10 Other psychoactive substance abuse, uncomplicated; F14.90 Cocaine use, unspecified, uncomplicated; F17.210 Nicotine dependence, cigarettes, uncomplicated; I10 Essential (primary) hypertension; J45.909 Unspecified asthma, uncomplicated
CPT/HCPCS: 36415; 80053; 80307; 82550; 84484; 85025; 93005; 93010; 99285

== ENCOUNTER 2019-03-11 19:50 | Emergency (ER) | payer SELFPAY ==
[2019-03-11 20:30] VITALS: BP 154/114
--- NOTE | 2019-03-11 20:33 | ER Document Report ---
ED Medical Screen (RME) - General Chief Complaint: Other Stated Complaint: ABNORMAL SENSATION Time Seen by Provider: 03/11/19 20:24 Mode of Arrival: Medic Information source: Patient Notes: Patient is a 28-year-old male who presents the emergency department with "altered sensation". Patient was seen here in this emergency department earlier for a drug overdose. Patient not being cooperative with answering questions. Patient's vital signs are within normal limits other than hypertension. Patient reports history of hypertension, states not taking medications. Patient has equal patient svcs mgr strength. Patient is afebrile and not tachycardic. It is unknown exactly what the patient's complaint is. Patient ambulates with a steady and even gait. After my assessment patient reports to the nurse that he is having midsternal chest pain without radiation. Patient has not had any vomiting. Exam: Machinist/Machine Builder strength equal bilaterally. Heart sounds S1-S2 present with no ectopy noted. Lung sounds are clear and equal bilaterally. I have greeted and performed a rapid initial assessment of this patient. A comprehensive ED assessment and evaluation of the patient, analysis of test results and completion of the medical decision making process will be conducted by additional ED providers. Dictation of this chart was performed using voice recognition software; therefore, there may be some unintended grammatical errors. TRAVEL OUTSIDE OF THE [place] IN LAST 30 DAYS: No - Related Data Allergies/Adverse Reactions: No Known Allergies Allergy (Verified 03/08/19 09:45) Past Medical History - Social History Chew tobacco use (# tins/day): No Frequency of alcohol use: None Drug Abuse: None - Past Medical History Cardiac Medical History: Reports: Hx Hypertension Pulmonary Medical History: Reports: Hx Asthma Endocrine Medical History: Denies: Hx Diabetes Mellitus Type 2 Renal/ Medical History: Denies: Hx Peritoneal Dialysis GI Medical History: Denies: Hx Gastroesophageal Reflux Disease Musculoskeltal Medical History: Reports Hx Musculoskeletal Trauma Psychiatric Medical History: Reports: Hx Schizophrenia Traumatic Medical History: Reports: Hx Fractures - Right hand - Immunizations Immunizations up to date: Yes Hx Diphtheria, Pertussis, Tetanus Vaccination: Yes Physical Exam - Vital signs Vitals: Temp Pulse Resp BP Pulse Ox 98.1 F 108 H 18 154/114 H 100 03/11/19 20:28 03/11/19 20:28 03/11/19 20:28 03/11/19 20:28 03/11/19 20:28 Course - Vital Signs Vital signs: Temp Pulse Resp BP Pulse Ox 98.1 F 108 H 18 154/114 H 100 03/11/19 20:28 03/11/19 20:28 03/11/19 20:28 03/11/19 20:28 03/11/19 20:28
--- NOTE | 2019-03-11 21:22 | RADIOLOGY REPORT (SQ) ---
EXAM DESCRIPTION: CLINICAL HISTORY: 28 years Male chest pain COMPARISON: CT chest 09/25/2018. FINDINGS: The cardiomediastinal silhouette appears unremarkable. No consolidating infiltrates or pleural effusions. No pneumothorax. There is an ovoid area of irregularity projected over the lateral left upper chest which was not present on the prior CT examination. Question something overlying the patient or related to the patient's clothing. Recommend clinical correlation and repeat imaging IMPRESSION: Question artifact overlying the left upper chest. This could reflect something on the patient's clothing. Recommend clinical correlation and repeat view
[2019-03-11 21:28] LABS: ABSOLUTE LYMPHOCYTES (AUTO) 2.5 10^3/uL (0.5-4.7); ABSOLUTE MONOCYTES (AUTO) 0.7 10^3/uL (0.1-1.4); ABSOLUTE NEUT (AUTO) 2.1 10^3/uL (1.7-8.2); BASOPHILS % (AUTO) 0.8 % (0-2); EOSINOPHILS % (AUTO) 0.8 % (0-6); HEMATOCRIT 44.4 % (37.9-51.0); HEMOGLOBIN 15.3 g/dL (13.5-17.0); LYMPHOCYTES % (AUTO) 46.8 % (13-45); MEAN CORPUSCULAR HGB CONC 34.6 g/dL (32.0-36.0); MEAN CORPUSCULAR VOLUME 87 fl (80-97); MONOCYTES % (AUTO) 12.8 % (3-13); PLATELET COUNT 267 10^3/uL (150-450); RED BLOOD COUNT 5.11 10^6/uL (4.35-5.55); RED CELL DISTRIBUTION WIDTH 14.3 % (11.5-14.0); SEGMENTED NEUTROPHILS % (AUTO) 38.8 % (42-78); TOTAL CELLS COUNTED % (AUTO) 100 %; WHITE BLOOD COUNT 5.4 10^3/uL (4.0-10.5)
[2019-03-11 21:46] LABS: ALANINE AMINOTRANSFERASE 34 U/L (21-72); ALBUMIN 4.7 g/dL (3.5-5.0); ALKALINE PHOSPHATASE 84 U/L (38-126); ANION GAP 6 (5-19); ASPARTATE AMINO TRANSFERASE 50 U/L (17-59); BILIRUBIN,DIRECT 0.4 mg/dL (0.0-0.4); BILIRUBIN,TOTAL 3.1 mg/dL (0.2-1.3); BLOOD UREA NITROGEN 16 mg/dL (7-20); CALCIUM 10.3 mg/dL (8.4-10.2); CARBON DIOXIDE 30 mmol/L (22-30); CHLORIDE 101 mmol/L (98-107); CREATINE KINASE 563 U/L (55-170); GLUCOSE 92 mg/dL (75-110); SODIUM 136.9 mmol/L (137-145); TOTAL PROTEIN 8.6 g/dL (6.3-8.2)
--- NOTE | 2019-03-12 00:57 | ER Document Report ---
ED General - General Chief Complaint: Other Stated Complaint: ABNORMAL SENSATION Time Seen by Provider: 03/11/19 20:24 Mode of Arrival: Medic Notes: Patient is a 28-year-old male who presents with complaint of feeling unwell. He was seen earlier in the day after taking acid. He was seen by psychiatry and cleared. He was discharged. He says he is walking home but still felt that he did not feel himself and felt weak and fatigued. He therefore came back to the ER. He denies feeling depressed. He denies thoughts of suicide or homicide. He said he did not take any further drugs but feels as if he did not fully recover from drugs and was unsure if this was because of the acid or because of a different reason. He says he is now starting to improve. He has no other complaints at this time. He denies headache or chest pain. No abdominal pain. No vomiting. TRAVEL OUTSIDE OF THE [place] IN LAST 30 DAYS: No - Related Data Allergies/Adverse Reactions: No Known Allergies Allergy (Verified 03/08/19 09:45) Past Medical History - General Information source: Patient - Social History Smoking Status: Current Every Day Smoker Chew tobacco use (# tins/day): No Frequency of alcohol use: None Drug Abuse: None Family History: CAD Patient has suicidal ideation: No Patient has homicidal ideation: No - Past Medical History Cardiac Medical History: Reports: Hx Hypertension Pulmonary Medical History: Reports: Hx Asthma Endocrine Medical History: Denies: Hx Diabetes Mellitus Type 2 Renal/ Medical History: Denies: Hx Peritoneal Dialysis GI Medical History: Denies: Hx Gastroesophageal Reflux Disease Musculoskeletal Medical History: Reports Hx Musculoskeletal Trauma Psychiatric Medical History: Reports: Hx Schizophrenia Traumatic Medical History: Reports: Hx Fractures - Right hand - Immunizations Immunizations up to date: Yes Hx Diphtheria, Pertussis, Tetanus Vaccination: Yes Review of Systems - Review of Systems Notes: My Normal Review Basic REVIEW OF SYSTEMS: CONSTITUTIONAL : Denies fever, chills, or sweats. Denies recent illness. EENT: Denies eye, ear, throat, or mouth pain or symptoms. Denies nasal or sinus congestion. CARDIOVASCULAR: Denies chest pain. RESPIRATORY: Denies cough, cold, or chest congestion. Denies shortness of breath, difficulty breathing, or wheezing. GASTROINTESTINAL: Denies abdominal pain. Denies nausea, vomiting, or diarrhea. MUSCULOSKELETAL: Denies neck or back pain or joint pain or swelling. SKIN: Denies rash or skin lesions. HEMATOLOGIC : Denies easy bruising or bleeding. LYMPHATIC: Denies swollen, enlarged glands. NEUROLOGICAL: Denies altered mental status or loss of consciousness. Denies headache. Denies weakness or paralysis or loss of use of either side. Denies problems with gait or speech. Denies sensory or motor loss. PSYCHIATRIC: Denies suicidal or homicidal ideations. Denies hallucinations. ALL OTHER SYSTEMS REVIEWED AND NEGATIVE. Physical Exam - Vital signs Vitals: Temp Pulse Resp BP Pulse Ox 98.1 F 108 H 18 154/114 H 100 03/11/19 20:28 03/11/19 20:28 03/11/19 20:28 03/11/19 20:28 03/11/19 20:28 - Notes Notes: General Appearance: Well nourished, alert, cooperative, no acute distress, no obvious discomfort. Well-appearing. Vitals: reviewed, See vital signs table. Head: no swelling or tenderness to the head Eyes: PERRL, EOMI, Conjuctiva clear Mouth: No decreasd moisture Lungs: No wheezing, No rales, No rhonci, No accessory muscle use, good air exchange bilaterally. Heart: Normal rate, Regular rythm, No murmur, no rub Abdomen: Normal BS, soft, No rigidity, No reproducible abdominal tenderness to palpation, No guarding, no rebound, no abdominal masses, no organomegaly Extremities: strength 5/5 in all extremities, good pulses in all extremities, no swelling or tenderness in the extremities, no edema. Skin: warm, dry, appropriate color, no rash Neuro: speech clear, oriented x 3, normal affect, responds appropriately to questions. Psychiatric: Able to hold normal conversation with organized thought process. Course - Re-evaluation Re-evalutation: 03/12/19 06:34 I did talk to patient length. Offered for him to stay a little longer if he did not feel well. Patient says that she is feeling improved. He says he does not want to see mental health at this time. He denies being depressed or suicidal or homicidal. He saw mental health earlier today and was cleared by them. Formed him the reason why is probably feeling not his usual self was because he was still recovering from the acid drip that he had earlier in the day. Now the patient is feeling improved he does feel good to go home. I strongly encouraged him to follow-up with the resources given to him at his last visit in regards to drug rehab. I encouraged her return to ER immediately if he has fevers, vomiting, worsening weakness, hallucinations, depression, or recurrence of his symptoms. Patient agrees with plan and will be discharged home. Dictation of this chart was performed using voice recognition software; therefore, there may be some unintended grammatical errors. - Vital Signs Vital signs: Temp Pulse Resp BP Pulse Ox 98.1 F 108 H 18 154/114 H 100 03/11/19 20:28 03/11/19 20:28 03/11/19 20:28 03/11/19 20:28 03/11/19 20:28 - Laboratory Result Diagrams: 03/11/19 21:03 03/11/19 21:03 Laboratory results interpreted by me: 03/11/19 03/11/19 21:03 21:03 RDW 14.3 H Seg Neutrophils % 38.8 L Lymphocytes % 46.8 H Sodium 136.9 L Calcium 10.3 H Total Bilirubin 3.1 H Creatine Kinase 563 H Total Protein 8.6 H - EKG Interpretation by Me Additional EKG results interpreted by me: 03/12/19 00:57 EKG is reviewed and interpreted by me. EKG shows sinus rhythm with a rate of [address] segment elevation or depression. No ischemic T wave inversions. UT interval, QRS duration, QT intervals are within normal range. Old EKG for comparison is from March 11, 2019. Discharge - Discharge Clinical Impression: Polysubstance abuse Condition: Good Disposition: HOME, SELF-CARE Additional Instructions: Please avoid drugs. They can make you feel unwell and cause confusion. please follow up with the resources give to you at your recent discharge. These resources are to help you with your drug addictions. please return to the ER if you are feeling unwell, have thoughts of suicide or homicide, feel as if you are hallucinating, or have any further concerns.
--- NOTE | 2019-03-12 10:15 | EKG REPORT ---
SEVERITY:- BORDERLINE ECG - SINUS TACHYCARDIA PROBABLE LEFT ATRIAL ABNORMALITY : Confirmed by: Kelin Nixon MD 12-Mar-2019 10:14:29
== END 2019-03-12 02:30 | disposition home or self-care (01) ==
LOC: ER 19:50
DX: F19.10 Other psychoactive substance abuse, uncomplicated (principal); R53.1 Weakness; R53.83 Other fatigue; F17.200 Nicotine dependence, unspecified, uncomplicated; I10 Essential (primary) hypertension; J45.909 Unspecified asthma, uncomplicated
CPT/HCPCS: 36415; 71045; 80053; 82550; 84484; 85025; 93005; 93010; 99284

== ENCOUNTER 2019-03-22 21:48 | Emergency (ER) | payer SELFPAY ==
--- NOTE | 2019-03-22 22:47 | ER Document Report ---
ED General - General Chief Complaint: Drug Abuse Stated Complaint: HTN Time Seen by Provider: 03/22/19 22:36 Mode of Arrival: Medic Information source: Patient Notes: This is a 28-year-old man who was brought into the emergency room after taking drugs. He states that normally he takes ICE (injection) and is not sure if they "gave him something else". He does have a history of high blood pressure but is on no medicines. He denies any suicidal ideations at this time. TRAVEL OUTSIDE OF THE [place] IN LAST 30 DAYS: No - HPI Onset: Just prior to arrival Onset/Duration: Sudden Quality of pain: No pain Severity: None Pain Level: Denies Associated symptoms: denies: Chest pain, Headache, Shortness of breath Exacerbated by: Denies Relieved by: Denies Similar symptoms previously: Yes Recently seen / treated by doctor: No - Related Data Allergies/Adverse Reactions: No Known Allergies Allergy (Verified 03/08/19 09:45) Past Medical History - General Information source: Patient - Social History Smoking Status: Never Smoker Cigarette use (# per day): No Chew tobacco use (# tins/day): No Drug Abuse: Methamphetamine Lives with: Friend Family History: CAD Patient has suicidal ideation: No Patient has homicidal ideation: No - Past Medical History Cardiac Medical History: Reports: Hx Hypertension Pulmonary Medical History: Reports: Hx Asthma Endocrine Medical History: Denies: Hx Diabetes Mellitus Type 2 Renal/ Medical History: Denies: Hx Peritoneal Dialysis GI Medical History: Denies: Hx Gastroesophageal Reflux Disease Musculoskeletal Medical History: Reports Hx Musculoskeletal Trauma Psychiatric Medical History: Reports: Hx Schizophrenia Traumatic Medical History: Reports: Hx Fractures - Right hand - Immunizations Immunizations up to date: Yes Hx Diphtheria, Pertussis, Tetanus Vaccination: Yes Review of Systems - Review of Systems Constitutional: denies: Chills, Fever EENT: No symptoms reported Cardiovascular: No symptoms reported Respiratory: No symptoms reported Gastrointestinal: No symptoms reported Genitourinary: No symptoms reported Male Genitourinary: No symptoms reported Musculoskeletal: No symptoms reported Skin: No symptoms reported Hematologic/Lymphatic: No symptoms reported Neurological/Psychological: See HPI Physical Exam - Vital signs Vitals: Temp Pulse Resp BP Pulse Ox 98.4 F 119 H 20 163/93 H 97 03/22/19 22:10 03/22/19 22:10 03/22/19 22:10 03/22/19 22:10 03/22/19 22:10 Notes: Physical exam: GENERAL: Patient is alert and oriented x3. He does appear a little anxious. His heart rate is 105 at the bedside. His blood pressure is 145/117. His oxygen saturation is 99% on room HEAD: Atraumatic, normocephalic. EYES: Pupils equal round and reactive to light, extraocular movements intact, sclera anicteric, conjunctiva are normal. ENT: TMs normal, nares patent, oropharynx clear without exudates. Moist mucous membranes. NECK: Normal range of motion, supple without obvious mass or JVD. LUNGS: Breath sounds clear to auscultation bilaterally and equal. No wheezes rales or rhonchi. HEART: Regular rate and rhythm without murmurs, rubs or gallops. ABDOMEN: Soft, normoactive bowel sounds. No tenderness to palpation. No guarding, no rebound. No masses appreciated. EXTREMITIES: Normal range of motion, no pitting or edema. No clubbing or cyanosis. NEUROLOGICAL: Cranial nerves II through XII grossly intact. Normal speech, moving all extremities. PSYCH: Normal mood, normal affect. SKIN: Warm, Dry, normal turgor, no rashes or lesions noted. Course - Re-evaluation Re-evalutation: 03/23/19 02:19 Note: Patient was observed several hours. He denies any suicidal ideation, he is requesting leave the ER. At this point in time, he is not acutely suicidal and he appears competent to make his own decisions. I will refer him to detox. Urine tox screen showed high for methamphetamines. 03/23/19 02:20 03/23/19 03:18 I had a long conversation with the patient about his elevated blood pressure and methamphetamine use. I discussed the risk of strokes and heart attacks with him. He seemed to understand exactly what I was talking about. He was told in the past that he has high blood pressure but he refuses to take medicines. I told him that this would particularly be worse given his drug use. I have given him a referral to a rehab facility which he says he is going to call. - Vital Signs Vital signs: Temp Pulse Resp BP Pulse Ox 98.4 F 119 H 13 150/112 H 100 03/22/19 22:10 03/22/19 22:10 03/22/19 23:01 03/22/19 23:00 03/22/19 23:01 - Laboratory Result Diagrams: 03/22/19 22:35 03/22/19 22:35 Laboratory results interpreted by me: 03/22/19 03/22/19 03/22/19 22:35 22:35 23:30 RBC 5.65 H RDW 14.5 H Carbon Dioxide 31 H Glucose 71 L Calcium 10.9 H Total Bilirubin 2.6 H Total Protein 9.1 H Albumin 5.1 H Urine Ketones TRACE H Urine Urobilinogen 2.0 H - EKG Interpretation by Me Rate: Tachycardia - EKG shows sinus tachycardia with evidence of LVH and early re-pole. There is no evidence of ST depression or reciprocal changes. Patient denies any chest pain at this time. Discharge - Discharge Clinical Impression: Substance dependence Condition: Stable Disposition: HOME, SELF-CARE Additional Instructions: Recommendations: Return to the emergency room for any thoughts of wanting to hurt herself or others, or any thoughts that she was losing control. Followup with your psychiatrist or counselor within the next 2 days. If you do not have a psychiatrist or counselor, you can followup at one of the following: Call them for their accepoted payment schedule: [facility] Dr Akshat Hilario [phone] [facility] [address] [place], [place] Outpatient services: [phone] [place] Office: [phone] Accepts self pay [facility] [address] [place], [place] [phone] Accepts self pay [facility] [address] [facility] [place], [place] Crisis Response: [phone] Outpatient services: [phone] Accepts self pay [facility] [address] [place], [place] [phone] [facility] [address] [place], [place] [phone] [facility] [address] [place] [address] Accepts self pay
[2019-03-22 22:57] LABS: ABSOLUTE LYMPHOCYTES (AUTO) 2.7 10^3/uL (0.5-4.7); ABSOLUTE MONOCYTES (AUTO) 0.8 10^3/uL (0.1-1.4); BASOPHILS % (AUTO) 0.7 % (0-2); EOSINOPHILS % (AUTO) 0.5 % (0-6); HEMATOCRIT 49.3 % (37.9-51.0); HEMOGLOBIN 16.8 g/dL (13.5-17.0); MEAN CORPUSCULAR HEMOGLOBIN 29.6 pg (27.0-33.4); MEAN CORPUSCULAR VOLUME 87 fl (80-97); PLATELET COUNT 305 10^3/uL (150-450); RED BLOOD COUNT 5.65 10^6/uL (4.35-5.55); RED CELL DISTRIBUTION WIDTH 14.5 % (11.5-14.0); SEGMENTED NEUTROPHILS % (AUTO) 45.8 % (42-78); TOTAL CELLS COUNTED % (AUTO) 100 %; WHITE BLOOD COUNT 6.5 10^3/uL (4.0-10.5)
[2019-03-22 23:18] LABS: ALANINE AMINOTRANSFERASE 37 U/L (21-72); ALBUMIN 5.1 g/dL (3.5-5.0); ALKALINE PHOSPHATASE 85 U/L (38-126); ANION GAP 10 (5-19); ASPARTATE AMINO TRANSFERASE 36 U/L (17-59); BILIRUBIN,DIRECT 0.4 mg/dL (0.0-0.4); BILIRUBIN,TOTAL 2.6 mg/dL (0.2-1.3); BLOOD UREA NITROGEN 16 mg/dL (7-20); CALCIUM 10.9 mg/dL (8.4-10.2); CARBON DIOXIDE 31 mmol/L (22-30); CHLORIDE 100 mmol/L (98-107); GLUCOSE 71 mg/dL (75-110); POTASSIUM 4.4 mmol/L (3.6-5.0); SODIUM 140.8 mmol/L (137-145); TOTAL PROTEIN 9.1 g/dL (6.3-8.2)
[2019-03-23 00:08] LABS: APPEARANCE,URINE SLIGHTLY-CLOUDY; BILIRUBIN,URINE NEGATIVE (NEGATIVE); COLOR,URINE YELLOW; GLUCOSE, URINE NEGATIVE (NEGATIVE); KETONES,URINE TRACE mg/dL (NEGATIVE); LEUKOCYTE ESTERASE,URINE NEGATIVE (NEGATIVE); NITRITE,URINE NEGATIVE (NEGATIVE); PROTEIN,URINE NEGATIVE (NEGATIVE)
[2019-03-23 00:20] LABS: URINE BARBITURATES SCREEN NEGATIVE; URINE BENZODIAZEPINES SCREEN NEGATIVE; URINE COCAINE SCREEN NEGATIVE; URINE METHADONE SCREEN NEGATIVE; URINE PHENCYCLIDINE SCREEN NEGATIVE
[2019-03-23 00:24] LABS: URINE MARIJUANA (THC) SCREEN UNCONFIRMED POSITIVE
[2019-03-23] MEDS ORDERED: LORAZEPAM INJ 2 MG/1 ML VIAL IV ONE (00:42)
[2019-03-23 03:20] VITALS: BP 160/117
--- NOTE | 2019-03-23 08:36 | EKG REPORT ---
SEVERITY:- ABNORMAL ECG - SINUS TACHYCARDIA ST ELEVATION NONSPECIFIC NONSPECIFIC ST-T CHANGES- INFERIOR LEADS : Confirmed by: Brian Short MD 23-Mar-2019 08:35:34
== END 2019-03-23 02:30 | disposition home or self-care (01) ==
LOC: ER 21:48
DX: F19.20 Other psychoactive substance dependence, uncomplicated (principal); I10 Essential (primary) hypertension; E11.9 Type 2 diabetes mellitus without complications
CPT/HCPCS: 93005; 99284; 96374; 36415; 85025; 80053; 81001; 84484; 80307; 93010; J2060

== ENCOUNTER 2019-12-18 07:15 | Emergency (ER) | payer SELFPAY ==
--- NOTE | 2019-12-18 07:33 | ER Document Report ---
ED Cardiac - General Chief Complaint: Chest Pain Stated Complaint: CHEST PAIN Time Seen by Provider: 12/18/19 07:21 Information source: Patient Notes: HPI: 29-year-old male who presents today with EMS. Patient states that for the last 3 days he has been feeling "lightheaded". He states when getting up from a sitting or lying position he believes he has "passed out". He states he wakes up on the floor. No incontinence. No history of seizures. Some of these have been witnessed. No obvious postictal. Explained. Patient himself denies any headache, nausea, vomiting, chest pain, abdominal pain, leg swelling, weakness or numbness. He denies any drug abuse. He denies any palpitations or history of similar episodes. ROS: See HPI All other review of systems reviewed and otherwise negative Reviewed vital signs and nursing note as charted by RN. PHYSICAL EXAM: CONSTITUTIONAL: Alert and oriented and responds appropriately to questions. Well-appearing; well-nourished HEAD: Normocephalic; atraumatic EYES: PERRL; no nystagmus; sclerae non-icteric ENT: Normal nose; no rhinorrhea; moist mucous membranes; pharynx without lesions noted NECK: Supple without meningismus; non-tender; no cervical lymphadenopathy, no masses CARD: Regular rate and rhythm; no murmurs; symmetric distal pulses RESP: Normal chest excursion without splinting or tachypnea; breath sounds clear and equal bilaterally; no wheezes, no rhonchi, no rales ABD/GI: Normal bowel sounds; non-distended; soft, non-tender BACK: The back appears normal and is non-tender to palpation EXT: Normal ROM in all joints; non-tender to palpation; no edema SKIN: No acute lesions noted NEURO: CN 2-12 intact; 5/5 bilateral upper and lower extremity strength with sensation intact to light touch PSYCH: The patient's mood and manner are appropriate. Grooming and personal hygiene are appropriate. TRAVEL OUTSIDE OF THE [place] IN LAST 30 DAYS: No - Related Data Allergies/Adverse Reactions: No Known Allergies Allergy (Verified 03/08/19 09:45) Past Medical History - Social History Smoking Status: Current Every Day Smoker Family History: CAD - Past Medical History Cardiac Medical History: Reports: Hx Hypertension Pulmonary Medical History: Reports: Hx Asthma Endocrine Medical History: Denies: Hx Diabetes Mellitus Type 2 Renal/ Medical History: Denies: Hx Peritoneal Dialysis GI Medical History: Denies: Hx Gastroesophageal Reflux Disease Musculoskeletal Medical History: Reports Hx Musculoskeletal Trauma Psychiatric Medical History: Reports: Hx Schizophrenia Traumatic Medical History: Reports: Hx Fractures - Right hand - Immunizations Immunizations up to date: Yes Hx Diphtheria, Pertussis, Tetanus Vaccination: Yes Physical Exam - Vital signs Vitals: Resp 19 12/18/19 07:23 Course - Re-evaluation Re-evalutation: 12/18/19 07:27 Heart rate 86, normal sinus rhythm, normal axis, no ST elevation or depression. Minimal LVH. Given the history and physical examination in this well-appearing 29-year-old male with symptomatology only from a sitting or lying to a standing position, with no seizure activity or incontinence noticed, with no headache, chest pain, palpitations, recent fevers, vomiting, or diarrhea, I will obtain a cardiac pa yemi, EKG, d-dimer, CT scan of the head, and reassess. I would like to evaluate for the possibility of an electrode abnormality, cardiac abnormality, pulmonary embolism, or intracranial lesion. 12/18/19 09:00 Labs and imaging as recorded. Patient is currently taking off his equipment as he states he would like to go. He would not provide a urine sample for drug screen. Patient denies any weakness or numbness at this time. He has no focal logical deficits. Still no headache or chest pain. 12/18/19 09:11 Patient demanded his IVs to be taken out and he left because he wanted to smoke. I explained that we cannot smoke on hospital ground premises. I have offered a nicotine patch. Patient eloped when I left the room. - Vital Signs Vital signs: Temp Pulse Resp BP Pulse Ox 98.0 F 16 155/100 H 100 12/18/19 08:45 12/18/19 08:45 12/18/19 08:45 12/18/19 08:45 - Laboratory Result Diagrams: 12/18/19 07:25 12/18/19 07:25 Laboratory results interpreted by me: 12/18/19 12/18/19 07:25 07:25 Lymph % (Auto) 47.5 H Seg Neutrophils % 41.9 L Glucose 115 H Total Bilirubin 2.7 H Creatine Kinase 435 H Discharge - Discharge Clinical Impression: Syncope and collapse Condition: Fair Disposition: ELOPED
[2019-12-18] MEDS ORDERED: NORMAL SALINE 1000 ML 1,000 ML IV ONE (07:35)
--- NOTE | 2019-12-18 07:43 | EKG REPORT ---
SEVERITY:- BORDERLINE ECG - SINUS RHYTHM BORDERLINE PROLONGED QT INTERVAL : Confirmed by: Brian Short MD 18-Dec-2019 07:41:57
[2019-12-18 07:44] LABS: ABSOLUTE LYMPHOCYTES (AUTO) 2.2 10^3/uL (0.5-4.7); ABSOLUTE MONOCYTES (AUTO) 0.4 10^3/uL (0.1-1.4); BASOPHILS % (AUTO) 0.7 % (0-2); EOSINOPHILS % (AUTO) 0.5 % (0-6); HEMATOCRIT 47.1 % (37.9-51.0); HEMOGLOBIN 15.9 g/dL (13.5-17.0); LYMPHOCYTES % (AUTO) 47.5 % (13-45); MEAN CORPUSCULAR HEMOGLOBIN 28.8 pg (27.0-33.4); MEAN CORPUSCULAR HGB CONC 33.8 g/dL (32.0-36.0); MEAN CORPUSCULAR VOLUME 85 fl (80-97); MONOCYTES % (AUTO) 9.4 % (3-13); PLATELET COUNT 267 10^3/uL (150-450); RED BLOOD COUNT 5.53 10^6/uL (4.35-5.55); RED CELL DISTRIBUTION WIDTH 12.3 % (11.5-14.0); SEGMENTED NEUTROPHILS % (AUTO) 41.9 % (42-78); TOTAL CELLS COUNTED % (AUTO) 100 %; WHITE BLOOD COUNT 4.7 10^3/uL (4.0-10.5)
[2019-12-18 07:58] LABS: ALBUMIN 4.8 g/dL (3.5-5.0); ALKALINE PHOSPHATASE 93 U/L (38-126); ANION GAP 14 (5-19); ASPARTATE AMINO TRANSFERASE 36 U/L (17-59); BILIRUBIN,TOTAL 2.7 mg/dL (0.2-1.3); BLOOD UREA NITROGEN 16 mg/dL (7-20); CARBON DIOXIDE 24 mmol/L (22-30); CHLORIDE 101 mmol/L (98-107); CREATINE KINASE 435 U/L (55-170); GLUCOSE 115 mg/dL (75-110); POTASSIUM 3.6 mmol/L (3.6-5.0)
--- NOTE | 2019-12-18 08:08 | RADIOLOGY REPORT (SQ) ---
EXAM DESCRIPTION: CHEST SINGLE VIEW COMPLETED DATE/TIME: 12/18/2019 7:57 am REASON FOR STUDY: cp COMPARISON: 03/11/2019 EXAM PARAMETERS: NUMBER OF VIEWS: One view. TECHNIQUE: Single frontal radiographic view of the chest acquired. RADIATION DOSE: NA LIMITATIONS: None. FINDINGS: LUNGS AND PLEURA: No opacities, masses or pneumothorax. No pleural effusion. MEDIASTINUM AND HILAR STRUCTURES: No masses. Contour normal. HEART AND VASCULAR STRUCTURES: Heart normal in size. Normal vasculature. BONES: No acute findings. HARDWARE: None in the chest. OTHER: No other significant finding. IMPRESSION: NO ACUTE RADIOGRAPHIC FINDING IN THE CHEST. TECHNICAL DOCUMENTATION: JOB ID: [id number] [employer]- All Rights Reserved Reading location - IP/workstation name: [email or web address]
[2019-12-18 08:10] LABS: CREATINE KINASE MB 1.37 ng/mL (<4.55)
[2019-12-18 08:12] LABS: TROPONIN I < 0.012 ng/mL
--- NOTE | 2019-12-18 08:27 | RADIOLOGY REPORT (SQ) ---
EXAM DESCRIPTION: CT HEAD WITHOUT COMPLETED DATE/TIME: 12/18/2019 7:13 am REASON FOR STUDY: mp; Syncope? Seizure? COMPARISON: None. TECHNIQUE: Axial images acquired through the brain without intravenous contrast. Images reviewed wi th bone, brain and subdural windows. Images stored on PACS. All CT scanners at this facility use dose modulation, iterative reconstruction, and/or weight based d osing when appropriate to reduce radiation dose to as low as reasonably achievable (ALARA). [facility]: Dose Right [facility]: CareDose [facility]: Dose Right [facility]: Teradose 4D [facility]: Smart Ikro RADIATION DOSE: CT Rad equipment meets quality standard of care and radiation dose reduction techniq ues were employed. CTDIvol: 53.2 mGy. DLP: 1097 mGy-cm. mGy. LIMITATIONS: None. FINDINGS: VENTRICLES: Normal size and contour. CEREBRUM: No masses. No hemorrhage. No midline shift. No evidence for acute infarction. Normal gra y/white matter differentiation. No areas of low density in the white matter. CEREBELLUM: No masses. No hemorrhage. No alteration of density. No evidence for acute infarction. EXTRAAXIAL SPACES: No fluid collections. No masses. ORBITS AND GLOBE: No intra- or extraconal masses. Normal contour of globe without masses. CALVARIUM: No fracture. PARANASAL SINUSES: No fluid or mucosal thickening. SOFT TISSUES: No mass or hematoma. OTHER: No other significant finding. IMPRESSION: No acute intracranial hemorrhage, mass, or evidence of acute territorial infarct. EVIDENCE OF ACUTE STROKE: NO. COMMENT: Quality ID # [id number]: Final reports with documentation of one or more dose reduction techniques (e.g., Automated exposure control, adjustment of the mA and/or kV according to patient size, use of iterative reconstruction technique) TECHNICAL DOCUMENTATION: JOB ID: [id number] [employer]- All Rights Reserved Reading location - IP/workstation name: [email or web address]
[2019-12-18 09:09] VITALS: BP 155/100
== END 2019-12-18 09:00 | disposition left against medical advice (07) ==
LOC: ER 07:15
DX: R55 Syncope and collapse (principal); R42 Dizziness and giddiness; F17.200 Nicotine dependence, unspecified, uncomplicated; I10 Essential (primary) hypertension; J45.909 Unspecified asthma, uncomplicated; E11.9 Type 2 diabetes mellitus without complications; Z53.29 Procedure and treatment not carried out because of patient's decision for other reasons
CPT/HCPCS: 36415; 70450; 71045; 80053; 82550; 82553; 84484; 85025; 85379; 93005; 93010; 99281

== ENCOUNTER 2019-12-18 17:47 | Emergency (ER) | payer SELFPAY ==
--- NOTE | 2019-12-18 18:18 | ER Document Report ---
ED Medical Screen (RME) - General Chief Complaint: General Weakness Stated Complaint: WEAKNESS Time Seen by Provider: 12/18/19 18:13 Mode of Arrival: Medic Information source: Patient Notes: 29-year-old male presented to ED for generalized weakness. He states his weakness is gotten much worse. His blood pressure is 179/123. While we are talking he states that someone is outside the window recording him. But there is no one outside of the window. Patient states he is very weak and is concerned he did have a blood pressure as stated above that was with the automatic cuff with the manual cuff his blood pressure is 172/88. We will get patient reexamined to ensure he is okay as he states his condition is getting worse. TRAVEL OUTSIDE OF THE [place] IN LAST 30 DAYS: No - Related Data Allergies/Adverse Reactions: No Known Allergies Allergy (Verified 12/18/19 18:05) Past Medical History - Social History Chew tobacco use (# tins/day): No Frequency of alcohol use: Heavy Drug Abuse: None - Past Medical History Cardiac Medical History: Reports: Hx Hypertension Pulmonary Medical History: Reports: Hx Asthma Endocrine Medical History: Denies: Hx Diabetes Mellitus Type 2 Renal/ Medical History: Denies: Hx Peritoneal Dialysis GI Medical History: Denies: Hx Gastroesophageal Reflux Disease Musculoskeltal Medical History: Reports Hx Musculoskeletal Trauma Psychiatric Medical History: Reports: Hx Schizophrenia Traumatic Medical History: Reports: Hx Fractures - Right hand - Immunizations Immunizations up to date: Yes Hx Diphtheria, Pertussis, Tetanus Vaccination: Yes Physical Exam - Vital signs Vitals: Temp Pulse Resp BP Pulse Ox 97.4 F 93 22 H 179/123 H 100 12/18/19 17:54 12/18/19 17:54 12/18/19 17:54 12/18/19 17:54 12/18/19 17:54 Course - Vital Signs Vital signs: Temp Pulse Resp BP Pulse Ox 97.4 F 93 22 H 179/123 H 100 12/18/19 17:54 12/18/19 17:54 12/18/19 17:54 12/18/19 17:54 12/18/19 17:54
[2019-12-18 19:03] LABS: ABSOLUTE LYMPHOCYTES (AUTO) 2.1 10^3/uL (0.5-4.7); ABSOLUTE MONOCYTES (AUTO) 0.4 10^3/uL (0.1-1.4); ABSOLUTE NEUT (AUTO) 1.9 10^3/uL (1.7-8.2); BASOPHILS % (AUTO) 0.7 % (0-2); EOSINOPHILS % (AUTO) 0.6 % (0-6); HEMATOCRIT 46.8 % (37.9-51.0); HEMOGLOBIN 16.1 g/dL (13.5-17.0); MEAN CORPUSCULAR HGB CONC 34.4 g/dL (32.0-36.0); MEAN CORPUSCULAR VOLUME 84 fl (80-97); MONOCYTES % (AUTO) 9.2 % (3-13); PLATELET COUNT 274 10^3/uL (150-450); RED BLOOD COUNT 5.54 10^6/uL (4.35-5.55); RED CELL DISTRIBUTION WIDTH 12.5 % (11.5-14.0); SEGMENTED NEUTROPHILS % (AUTO) 42.5 % (42-78); TOTAL CELLS COUNTED % (AUTO) 100 %; WHITE BLOOD COUNT 4.4 10^3/uL (4.0-10.5)
[2019-12-18 19:22] LABS: APPEARANCE,URINE CLEAR; BILIRUBIN,URINE NEGATIVE (NEGATIVE); COLOR,URINE COLORLESS; GLUCOSE, URINE NEGATIVE (NEGATIVE); KETONES,URINE NEGATIVE (NEGATIVE); PROTEIN,URINE NEGATIVE (NEGATIVE); URINE SPECIFIC GRAVITY 1.002; UROBILINOGEN,URINE NEGATIVE mg/dL (<2.0)
[2019-12-18 19:30] LABS: ALBUMIN 4.6 g/dL (3.5-5.0); ALKALINE PHOSPHATASE 74 U/L (38-126); ANION GAP 10 (5-19); ASPARTATE AMINO TRANSFERASE 34 U/L (17-59); BLOOD UREA NITROGEN 14 mg/dL (7-20); CALCIUM 9.9 mg/dL (8.4-10.2); CARBON DIOXIDE 28 mmol/L (22-30); CHLORIDE 101 mmol/L (98-107); CREATINE KINASE 339 U/L (55-170); GLUCOSE 111 mg/dL (75-110); POTASSIUM 3.4 mmol/L (3.6-5.0); TOTAL PROTEIN 7.9 g/dL (6.3-8.2)
[2019-12-18 19:39] LABS: URINE BARBITURATES SCREEN NEGATIVE; URINE BENZODIAZEPINES SCREEN NEGATIVE; URINE COCAINE SCREEN NEGATIVE; URINE MARIJUANA (THC) SCREEN NEGATIVE; URINE METHADONE SCREEN NEGATIVE; URINE PHENCYCLIDINE SCREEN NEGATIVE
[2019-12-18 19:40] LABS: URINE AMPHETAMINES SCREEN UNCONFIRMED POSITIVE
--- NOTE | 2019-12-18 20:38 | ER Document Report ---
ED Dizziness/Weakness - General Chief Complaint: General Weakness Stated Complaint: WEAKNESS Time Seen by Provider: 12/18/19 18:13 Mode of Arrival: Ambulatory Information source: Patient TRAVEL OUTSIDE OF THE [place] IN LAST 30 DAYS: No - HPI Notes: Patient presented to triage and complained that he was feeling weak. He was not able to state anything that made the weakness better or worse. There is no known radiation of this weakness. It did appear to be constant. Patient also stated he was concerned about his blood pressure. When I go into the room patient will not answer any questions. I stayed in the room for several minutes asking numerous questions and the patient would answer none of them. He just kept his eyes closed and did grunt one time. He would also not follow any commands. After I left the room and and stood outside I saw patient open his eyes and look in the window to see if I was looking. Patient has also been yelling random nondenominational phrases. - Related Data Allergies/Adverse Reactions: No Known Allergies Allergy (Verified 12/18/19 18:05) Past Medical History - General Information source: Patient - Social History Smoking Status: Current Every Day Smoker Chew tobacco use (# tins/day): No Frequency of alcohol use: Heavy Drug Abuse: None Family History: CAD Patient has suicidal ideation: No Patient has homicidal ideation: No - Past Medical History Cardiac Medical History: Reports: Hx Hypertension Pulmonary Medical History: Reports: Hx Asthma Endocrine Medical History: Denies: Hx Diabetes Mellitus Type 2 Renal/ Medical History: Denies: Hx Peritoneal Dialysis GI Medical History: Denies: Hx Gastroesophageal Reflux Disease Musculoskeletal Medical History: Reports Hx Musculoskeletal Trauma Psychiatric Medical History: Reports: Hx Schizophrenia Traumatic Medical History: Reports: Hx Fractures - Right hand - Immunizations Immunizations up to date: Yes Hx Diphtheria, Pertussis, Tetanus Vaccination: Yes Review of Systems - Review of Systems -: Yes ROS unobtainable due to patient's medical condition - Review of symptoms is not obtainable because patient will not answer Physical Exam - Vital signs Vitals: Temp Pulse Resp BP Pulse Ox 97.4 F 93 22 H 179/123 H 100 12/18/19 17:54 12/18/19 17:54 12/18/19 17:54 12/18/19 17:54 12/18/19 17:54 Interpretation: Hypertensive, Tachycardic - General General appearance: Appears well, Alert In distress: None - HEENT Head: Normocephalic, Atraumatic Eyes: Normal Pupils: PERRL - Respiratory Respiratory status: No respiratory distress Chest status: Nontender Breath sounds: Normal Chest palpation: Normal - Cardiovascular Rhythm: Regular Heart sounds: Normal auscultation Murmur: No - Abdominal Inspection: Normal Distension: No distension Bowel sounds: Normal Tenderness: Nontender Organomegaly: No organomegaly - Back Back: Normal, Nontender - Extremities General upper extremity: Normal inspection, Nontender, Normal color, Normal temperature General lower extremity: Normal inspection, Nontender, Normal color, Normal temperature. No: Jaswant's sign - Neurological [place] Coma Scale Eye Opening: Spontaneous Louise Coma Scale Verbal: Inappropriate [place] Coma Scale Motor: Localizes to Pain [place] Coma Scale Total: 12 Speech: Normal - Psychological Associated symptoms: Agitated, Psychomotor agitation, Jewish preoccupation - Skin Skin Temperature: Warm Skin Moisture: Dry Skin Color: Normal Course - Re-evaluation Re-evalutation: 12/18/19 20:36 Patient's laboratory work-up was unremarkable other than being positive for methamphetamines. Patient has been intermittently agitated since he has been here and yelling random nondenominational phrases. I am not able to adequately assess the patient. He does appear to be responding to internal stimuli. I do not feel comfortable discharging the patient at this time. I have placed him on involuntary commitment and will have him evaluated in the morning by psychiatry. - Vital Signs Vital signs: Temp Pulse Resp BP Pulse Ox 98.4 F 93 18 193/120 H 99 12/18/19 20:10 12/18/19 17:54 12/18/19 20:01 12/18/19 20:01 12/18/19 20:01 - Laboratory Result Diagrams: 12/18/19 18:38 12/18/19 18:35 Laboratory results interpreted by me: 12/18/19 12/18/19 18:35 18:38 Lymph % (Auto) 47.0 H Potassium 3.4 L Glucose 111 H Total Bilirubin 3.0 H Creatine Kinase 339 H Discharge - Discharge Clinical Impression: Altered behavior, Involuntary commitment Condition: Stable Disposition: PSYCH HOSP/UNIT
[2019-12-18 21:05] LABS: ACETAMINOPHEN < 10 ug/mL (10-30); ALCOHOL < 10 mg/dL (NONE DETECTED); SALICYLATE < 1.0 mg/dL (2.0-20.0)
--- NOTE | 2019-12-19 07:49 | EKG REPORT ---
SEVERITY:- ABNORMAL ECG - SINUS RHYTHM PROLONGED QT INTERVAL : Confirmed by: Brian Short MD 19-Dec-2019 07:49:10
--- NOTE | 2019-12-19 14:11 | ER Document Report ---
Doctor's Note Notes: 12/19/19 14:10 Patient's vital signs and previous labs, diagnostic images reviewed. Reviewed mental health notes, nurse's notes and previous providers notes. VSS. Pt is in no distress at this time. Denies any SI or HI. Patient will be discharged home today per mental health, eating from mental health to give plan of care for discharge. Patient did test positive for amphetamines General: A&Ox3. Answers questions appropriately. Heart: RRR Lungs: CTAB Psych: Flat affect A/P: Continue monitoring and rec's per . Normal diet Awaiting for mental health plan of care 12/19/19 14:11
[2019-12-19 17:00] VITALS: BP 137/94
--- NOTE | 2019-12-19 20:25 | PSYCHOLOGICAL NOTE ---
Psych Note - Psych Note Date seen by psych provider: 12/19/19 Psych Note: Patient is a 29-year-old male who presents to ED via EMS with somatic concerns. Behavioral health consult was placed after patient shouted "latter day phrases" and refused to answer medical provider's questions. Medical provider notes that patient would get up and observe if medical provider truly left the area. Patient has a history with behavioral health. Patient's drug screen was positive for amphetamines. Patient was generally not engaged with clinician. When clinician attempted to assess the degree patient was oriented to time place date, and circumstance patient replied "I do not know," until he looked at his armband and was able to state the year. Patient states he has no recollection of events that resulted in his admission to the ED. Patient states he remembers people "throwing stuff at me." Patient stated he was aware "I had an episode," and then asked clinician to "look at the camera" the clinician is aware of how he was treated last night in the ED. Patient denied suicidal ideation. Patient endorsed homicidal ideation with no plan towards "everybody from yesterday." Patient reports mental health diagnoses of "dementia, schizophrenia, and to other things." Patient states he was given these diagnoses during his incarceration. Patient is not currently linked with a mental health provider for medication management or mental health services. Patient states he was linked with [facility] for [facility]. Impression/Plan: Patient is recommended for rescind of 24-hour petition for evaluation and is cleared from acute psychiatric services. Patient denies suicidal. Patient endorsed passive homicidal ideation with no plan towards "everybody from yesterday." There is no observed behavior that suggests patient is responding to internal stimuli. Patient engaged in organized, rational, linear thought processes and was able to express needs and wants in a logical manner. Patient frequently replied "I do not know" when asked about his mental health needs. Patient denied SI /HI with medical provider. Was observed engaging in hygiene and grooming, sleeping, and eating. Patient's presentation and behavior can be explained by recent amphetamine use. Plan is for patient to follow-up with [facility]. Dr. Hilario was consulted on the care and management of this patient; attending physician is in agreement with recommendations and disposition.
== END 2019-12-19 16:47 | disposition home or self-care (01) ==
LOC: ER 17:47
DX: Z04.6 Encounter for general psychiatric examination, requested by authority (principal); R45.1 Restlessness and agitation; R53.1 Weakness; I10 Essential (primary) hypertension; J45.909 Unspecified asthma, uncomplicated; F17.200 Nicotine dependence, unspecified, uncomplicated
CPT/HCPCS: 36415; 80307; 81001; 82550; 83690; 87070; 93005; 93010; 99284